=== PATIENT | male | born 1960 | race Caucasian/White ===

== ENCOUNTER 2018-11-05 00:17 | Outpatient (CLI) | payer OTHER, SELFPAY ==
--- NOTE | 2018-11-05 11:43 | DI.US_ITS ---
SYMPTOMS/DIAGNOSIS: LEFT LOWER QUADRANT/GROIN PAIN, ? DIRECT INGUINAL HERNIA, K46.9 LEFT LOWER QUADRANT ULTRASOUND: A left inguinal mass is demonstrated and could represent a hernia measuring 3.2 x 1.2 x 2.6 cm. Acoustical heterogeneity is identified and there is no change with Valsalva maneuver. The possibility of a groin hematoma could not be excluded in this patient.
== END 2018-11-05 00:37 ==
PROVIDERS: PCP Family Medicine; Visit Provider Physical Therapy Assistant
DX: K46.9 Unspecified abdominal hernia without obstruction or gangrene (principal); R10.32 Left lower quadrant pain; R22.9 Localized swelling, mass and lump, unspecified
CPT/HCPCS: 76857

== ENCOUNTER 2019-01-01 01:56 | Outpatient (CLI) | payer OTHER, SELFPAY ==
[2019-01-01 11:45] LABS: Calculated LDL 160 mg/dL; Cholesterol 233 mg/dL (50-200); HDL Cholesterol 55 mg/dL (40-60); Triglyceride 91 mg/dL (30-150)
[2019-01-02 09:39] LABS: PSA, Screening 0.4 ng/ml (0-3.5)
== END 2019-01-01 02:16 ==
PROVIDERS: PCP Family Medicine; Visit Provider Family Medicine
DX: Z12.5 Encounter for screening for malignant neoplasm of prostate (principal); E78.5 Hyperlipidemia, unspecified
CPT/HCPCS: 36415; 80061; 83721; 84153

== ENCOUNTER 2020-03-01 03:07 | Outpatient (CLI) | payer OTHER, SELFPAY ==
[2020-03-01 16:40] LABS: PHENYTOIN (DILANTIN) 11.6 ug/mL (10.0-20.0)
[2020-03-01 16:52] LABS: Calculated LDL 148 mg/dL (<100); Cholesterol 228 mg/dL (<200); HDL Cholesterol 49 mg/dL (40-60); Triglyceride 157 mg/dL (<150)
== END 2020-03-01 03:27 ==
PROVIDERS: PCP Family Medicine; Visit Provider Family Medicine
DX: E78.5 Hyperlipidemia, unspecified (principal); G40.909 Epilepsy, unspecified, not intractable, without status epilepticus; Z51.81 Encounter for therapeutic drug level monitoring
CPT/HCPCS: 36415; 80061; 80185

== ENCOUNTER 2020-05-12 10:21 | Emergency (ER) | payer OTHER, SELFPAY ==
[2020-05-12 10:25] VITALS: BP 157/97; PULSE 83; TEMP 36.3; O2SAT 98
--- NOTE | 2020-05-12 10:33 | W.ED.GENAD ---
Discharge Plan Disposition Patient Disposition: HOME Condition: Stable Discharge Details Clinical Impression: Laceration of left index finger Primary Care Provider: Jose E Jennings ED Provider: Karma Wilson Home Meds and New Rx's Prescriptions: Continued multivitamin capsule 1 cap PO DAILY RF: 0 phenytoin sodium extended [Dilantin Extended] 100 mg capsule 400 mg PO DAILY Qty: 360 RF: 3 atorvastatin 80 mg tablet 80 mg PO DAILY Qty: 90 RF: 3 metoprolol succinate 25 mg tablet extended release 24 hr 25 mg PO DAILY Qty: 90 RF: 3 Discharge Instructions Instructions: Finger Laceration (ED) Additional Instructions: Please have sutures removed in 7 to 10 days. Leave alone for the first 12 to 24 hours. No soaking, keep clean and dry. After 24 hours you may wash under running soap and water. Please take Tylenol or Ibuprofen with food every 4-6 hours as needed for pain and swelling. Follow up with primary care provider in 3-5 days. Return to ED sooner if any worsening or concerns. Increase oral fluids. Stand Alone Forms: Work Release Referrals: Jose E Jennings. [Primary Care Provider] - Medical Decision Making 59-year-old male sustained a laceration to the distal tip of the volar surface of his left index finger on a table saw just prior to arrival. Last tetanus shot was 2015. Range of motion intact. Imaging was performed to rule out foreign body and fracture. EXAM: XR FINGER LT INDEX CLINICAL HISTORY: Laceration, r/o FB or fracture TECHNIQUE: COMPARISON: No exams were available for comparison FINDINGS: Three views were obtained. The patient reportedly had soft tissue injury of the volar aspect of the distal portion of the index finger. No abnormality of the bone subjacent to the reported injury. There are severe degenerative changes at the DIP joint with prominent marginal osteophytes, with some fragmentation dorsal osteophyte of the base of the distal phalanx. The these do not appear to be acute changes. Slight DJD noted at the PIP joint. IMPRESSION: No evidence of acute fracture. No foreign body. Digital block performed patient tolerated well anesthesia was achieved. Wound was cleaned and irrigated extensively by tech staff, laceration repaired with 4 simple interrupted sutures with four-point 0 Ethilon. Wound was poorly approximated, very jagged. Instructed on home care, verbalized understanding. Discussed strict return instructions and to have sutures removed in 7 to 10 days. HPI General Mode of arrival: ambulatory. Date/Time Provider Initiated Documentation: 05/12/20 10:28. Limitations to Documentation: no limitations. Information obtained by: patient. HPI Narrative: 59-year-old male presents to the ER with left index finger laceration. This occurred just prior to arrival while at work working on a table saw states that he got too close to the blade with his finger. He has full range of motion, distal sensation is intact. There is approximate 1.5 cm partial-thickness laceration noted to the distal tip, palmar side. Bleeding is controlled at this time. Last tetanus shot was 2015. Related Data Home Medications Medication Instructions Recorded Confirmed multivitamin 1 cap PO DAILY 10/25/18 05/12/20 metoprolol succinate 25 mg 25 mg PO DAILY #90 tab 12/09/19 05/12/20 tablet,extended release 24 hr Dilantin Extended 100 mg capsule 400 mg PO DAILY #360 cap NS 02/25/20 05/12/20 atorvastatin 80 mg tablet 80 mg PO DAILY #90 tab 02/25/20 05/12/20 Previous Rx's Medication Instructions Recorded metoprolol succinate 25 mg 25 mg PO DAILY #90 tab 12/09/19 tablet,extended release 24 hr Dilantin Extended 100 mg capsule 400 mg PO DAILY #360 cap NS 02/25/20 atorvastatin 80 mg tablet 80 mg PO DAILY #90 tab 02/25/20 Allergies Allergy/AdvReac Type Severity Reaction Status Date / Time niacin Allergy Intermediate SKIN RASH Verified 02/25/20 14:10 General Stated Complaint: Laceration ANGUS: 3 Review of Systems Narrative: Constitutional: Negative for weight loss, alert and oriented, well groomed, normal body habitus, appears comfortable. Extremities: Has a laceration noted to the left index finger distal tip. [facility] Surgical History Colonoscopy - MAC Family History Mother , 84 Essential hypertension Hyperlipidemia Diabetes Father , 69 Essential hypertension Hyperlipidemia Alcohol abuse Sister Essential hypertension Hyperlipidemia FH: ovarian cancer Lung cancer Brother Essential hypertension Hyperlipidemia Maternal Grandfather Heart disease Paternal Grandfather Essential hypertension Heart disease Maternal Grandmother Essential hypertension Heart disease Hyperlipidemia Paternal Grandmother Heart disease Social History Smoking/Tobacco Use Status: Never Second Hand Exposure: Yes Smoking risk assessment performed?: Yes Alcohol Intake: current Alcohol Intake frequency: holidays/special occasions only Alcohol type: beer and wine Drug use: Never Substance use type: does not use Household members: spouse Housing: house Communication Needs: Corrective Lenses Do you need help understanding health information?: Rarely Pets and animals: Yes Pets and animals: cat(s) Sexually active: Yes Do you think of yourself as: straight/heterosexual Current gender identity: male What is your relationship status?: How often do you talk on the phone with friends or family?: twice per week How often do you get together with friends or relatives?: once per week Do you belong to any clubs or organized social groups?: yes Panel score (0-1 are the most socially isolated patients): 3 What type of physical activity do you participate in: other Details: operating saws and stretching Duration: > 90 minutes/day Frequency: 5-6 times per week Swati/Bahai: [employer] Special swati needs: No Seatbelt use: always Helmet use: Yes Helmet use: always 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 Do you feel safe at home: Yes Do you feel safe in your relationship?: Yes Exam Extrem Left upper extremity: hand (1.5 jagged laceration of the distal tip.) Details: normal capillary refill and laceration 2nd digit palmar aspect distal Course Vital Signs Vital signs: Vital Signs Temperature 36.3 C L 05/12/20 10:25 Pulse 83 05/12/20 10:25 Blood Pressure 157/97 H 05/12/20 10:25 Pulse Oximetry 98 05/12/20 10:25 Temperature 36.3 C L 05/12/20 10:25 Temperature Source Temporal Artery Scan 05/12/20 10:25 Pulse 83 05/12/20 10:25 Respiratory Effort Non-Labored 05/12/20 10:27 Blood Pressure 157/97 H 05/12/20 10:25 Blood Pressure Position Sitting 05/12/20 10:25 Pulse Oximetry 98 05/12/20 10:25 Oxygen Delivery Method Room Air 05/12/20 10:25 Oxygen Flow Rate 0 05/12/20 10:25 Pain Level 1 05/12/20 10:25 Procedures Laceration Laceration 1: Site: hand (Left index) Side (If applicable): left Size (cm): 0.5 Description: irregular Depth: simple, single layer Pre-repair: wound explored, irrigated extensively and wound margins revised Skin layer closed with: nylon Size (cm): 4-0 Number of sutures: 4 Technique: simple, interrupted Nerve Block Nerve Block 1: Time out performed: No Local Anesthetic: Lidocaine 1% Amount of anesthesia used (mL): 4 Side: left Nerve Blocks: digital (ring block) Procedure Successful: Yes Patient Tolerated Procedure: well and no complications Complications: none
--- NOTE | 2020-05-12 10:40 | DI.RAD_ITS ---
EXAM: XR FINGER LT INDEX CLINICAL HISTORY: Laceration, r/o FB or fracture TECHNIQUE: COMPARISON: No exams were available for comparison FINDINGS: Three views were obtained. The patient reportedly had soft tissue injury of the volar aspect of the distal portion of the index finger. No abnormality of the bone subjacent to the reported injury. There are severe degenerative changes a t the DIP joint with prominent marginal osteophytes, with some fragmentation dorsal osteophyte of the base of the distal phalanx. The these do not appear to be acute changes. Slight DJD noted at the PIP joint. IMPRESSION: No evidence of acute fracture. No foreign body. RADIATION DOSE DELIVERED: Total DLP
== END 2020-05-12 11:32 | disposition home or self-care (01) ==
PROVIDERS: Emergency Provider Registered Nurse Emergency; PCP Family Medicine
DX: S61.211A Laceration without foreign body of left index finger without damage to nail, initial encounter (principal); W31.2XXA Contact with powered woodworking and forming machines, initial encounter; Y99.0 Civilian activity done for income or pay
CPT/HCPCS: 12001; 73140

== ENCOUNTER 2020-08-06 08:27 | Emergency (ER) | payer OTHER, SELFPAY ==
--- NOTE | 2020-08-06 08:29 | W.ED.GENAD ---
Discharge Plan Disposition Patient Disposition: HOME Condition: Good Discharge Details Clinical Impression: Abrasion, Contusion Primary Care Provider: Jose E Jennings ED Provider: Rochelle Asencio Home Meds and New Rx's Prescriptions: Continued multivitamin capsule 1 cap PO DAILY RF: 0 phenytoin sodium extended [Dilantin Extended] 100 mg capsule 400 mg PO DAILY Qty: 360 RF: 3 atorvastatin 80 mg tablet 80 mg PO DAILY Qty: 90 RF: 3 metoprolol succinate 25 mg tablet extended release 24 hr 25 mg PO DAILY Qty: 90 RF: 3 Discharge Instructions Instructions: Contusion in Adults (ED), Abrasion (ED) Additional Instructions: Your imaging is reassuring here today. Please encourage gentle stretching. Please avoid heavy lifting or activities because pain. Tylenol and/or ibuprofen as needed for discomfort. Monitor wounds for signs of infection including redness, warmth, drainage, increased pain or fever/chills. If you develop these or other new/worsening symptoms please seek care urgently once again. Otherwise, please follow-up with your primary care in 2-week for reevaluation. Stand Alone Forms: Work Release Referrals: Jose E Jennings. [Primary Care Provider] - Discharge Data Discharge Date/Time-TO BE ENTERED AT DEPARTURE: 08/06/20 10:45 Medical Decision Making Patient is a pleasant 59-year-old gentleman presenting today with chief complaint of back pain. He reports that yesterday he was moving quickly backwards when he tripped over a pallet at work and fell striking the left flank again a cast iron hopper. Reports that since that time he has been having moderate pain to the left flank. Denies any hematuria. No fevers or chills. He did not strike his head, no loss of consciousness. Denies other injury at the time of the incident. He denies any numbness or tingling. No lower extremity weakness or difficulty with ambulation. No change in bowel or bladder habits. On exam, patient appears nontoxic. He has ecchymosis and abrasion to the left flank with CVA tenderness. Lungs are clear. Abdominal exam is benign. I am concerned for potential fracture rib versus kidney injury and some imaging would be appropriate. I did discuss this plan with the patient is in agreement. CHEST: The heart size is normal. Coronary artery calcifications are seen. The ascending aorta measures 3.6 cm. There is no evidence of dissection. There is no pleural or pericardial effusion. There is no evidence of pneumothorax or pulmonary contusion. No rib fractures are seen. There are degenerative changes in the shoulders. No thoracic spine or sternal fracture is seen. Degenerative changes are seen in the spine. ABDOMEN: Liver: Normal density. No measurable mass. Gallbladder and biliary tract: No radiodense calculus or dilation. Pancreas: Normal density, no abnormal calcifications or inflammatory process. Spleen: Normal. Kidneys: Normal size, contour and axis. No radiodense stones or obstructive uropathy. No masses seen. Tiny renal cysts. Adrenal glands: No masses seen. Aorta: Abdominal portion non-dilated. Mild atherosclerotic changes. Lymph nodes: Within normal limits. PELVIS: Bladder: Symmetric distention, no gross wall thickening. Bowel: No obstruction or bowel wall thickening. Normal appendix. Moderate quantity of stool. Peritoneal cavity: No ascites, collection or mesenteric inflammatory response. Bones: Degenerative changes in the spine and hips. No evidence of fracture. Reproductive organs: Within normal limits. IMPRESSION: No acute abnormality in the chest, abdomen, or pelvis. Discussed these findings with the patient. Encourage rest, ice, Tylenol/ibuprofen to help with discomfort. Return precautions were discussed. Care of the abrasions were discussed. We discussed symptoms associated with infection. We discussed activities that he should avoid. I did encourage gentle stretching to help prevent muscle spasm. All the questions and concerns were addressed and he is in agreement with plan. HPI General Mode of arrival: ambulatory. Date/Time Provider Initiated Documentation: 08/06/20 08:29. Limitations to Documentation: no limitations. Information obtained by: patient and RN notes reviewed. History of Present Illness 59 year old M presents to the emergency department with the chief complaint of left flank pain, described as moderate, with intensity rated at 7. Quality is described as aching, and is localized to the back. Patient reports no radiation. Patient started experiencing this day(s) (fell yesterday) and it has been constant. Immobilization improves symptom(s), Movement worsens symptoms . Patient notes no other symptoms.. Patient did receive the following treatments prior to arrival, none Related Data Home Medications Medication Instructions Recorded Confirmed multivitamin 1 cap PO DAILY 10/25/18 05/21/20 metoprolol succinate 25 mg 25 mg PO DAILY #90 tab 12/09/19 05/21/20 tablet,extended release 24 hr Dilantin Extended 100 mg capsule 400 mg PO DAILY #360 cap NS 02/25/20 05/21/20 atorvastatin 80 mg tablet 80 mg PO DAILY #90 tab 02/25/20 05/21/20 Previous Rx's Medication Instructions Recorded metoprolol succinate 25 mg 25 mg PO DAILY #90 tab 12/09/19 tablet,extended release 24 hr Dilantin Extended 100 mg capsule 400 mg PO DAILY #360 cap NS 02/25/20 atorvastatin 80 mg tablet 80 mg PO DAILY #90 tab 02/25/20 Allergies Allergy/AdvReac Type Severity Reaction Status Date / Time niacin Allergy Intermediate SKIN RASH Verified 08/06/20 08:37 General ANGUS: 3 Review of Systems Constitutional Constitutional: Reports as per HPI, Denies chills, Denies fatigue, Denies fever(s), Denies frequent falls and Denies headache(s) Eyes Eyes: Denies change in vision ENT Ears, Nose, Mouth, and Throat: Denies headache(s) Cardiovascular Cardiovascular: Denies chest pain, Denies dyspnea and Denies dyspnea on exertion Respiratory Respiratory: Denies cough, Denies dyspnea and Denies dyspnea on exertion Gastrointestinal Gastrointestinal: Denies abdominal pain, Denies change in bowel habits and Denies fecal incontinence Genitourinary Genitourinary: Reports as per HPI, Denies urinary hesitancy and Denies urinary incontinence Musculoskeletal Musculoskeletal: Reports as per HPI, Reports back pain, Denies muscle weakness, Denies numbness, Denies radiating pain into limb, Reports stiffness and Denies tingling Integumentary/Breasts Skin/Breast: Reports as per HPI, Reports skin pain, Reports skin swelling and Reports wounds (abrasion and ecchymosis left flank) Neurologic Neurologic: Reports as per HPI, Denies frequent falls, Denies headache(s), Denies localized weakness, Denies numbness, Denies radicular pain, Denies sensory deficit, Denies tingling and Denies paresthesias Endocrine Endocrine: Denies fatigue PFSH Surgical History Colonoscopy - MAC Family History Mother , 84 Essential hypertension Hyperlipidemia Diabetes Father , 69 Essential hypertension Hyperlipidemia Alcohol abuse Sister Essential hypertension Hyperlipidemia FH: ovarian cancer Lung cancer Brother Essential hypertension Hyperlipidemia Maternal Grandfather Heart disease Paternal Grandfather Essential hypertension Heart disease Maternal Grandmother Essential hypertension Heart disease Hyperlipidemia Paternal Grandmother Heart disease Social History Smoking/Tobacco Use Status: Never Second Hand Exposure: Yes Smoking risk assessment performed?: Yes Alcohol Intake: former Drug use: Never Substance use type: does not use Household members: spouse Housing: house Communication Needs: Corrective Lenses Do you need help understanding health information?: Rarely Pets and animals: Yes Pets and animals: cat(s) Sexually active: Yes Do you think of yourself as: straight/heterosexual Current gender identity: male What is your relationship status?: How often do you talk on the phone with friends or family?: twice per week How often do you get together with friends or relatives?: once per week Do you belong to any clubs or organized social groups?: yes Panel score (0-1 are the most socially isolated patients): 3 What type of physical activity do you participate in: other Details: operating saws and stretching Duration: > 90 minutes/day Frequency: 5-6 times per week Swati/Zoroastrianism: Holiness Special swati needs: No Seatbelt use: always Helmet use: Yes Helmet use: always 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 Do you feel safe at home: Yes Do you feel safe in your relationship?: Yes Exam Const General: cooperative, healthy appearing, comfortable, no acute distress, well developed and well groomed Nutritional Appearance: average body habitus and well nourished Orientation: alert and awake Eyes General: appearance normal, both eyes and all related structures Neck Neck: normal visual inspection, full ROM, no lymphadenopathy and no meningeal signs Resp Effort & Inspection: normal respiratory effort and able to speak in complete sentences Auscultation: clear to auscultation bilaterally, no rales, no rhonchi and no wheezes Cardio Rate: regular rate Rhythm: regular rhythm Heart Sounds: S1 normal and S2 normal GI Inspection: normal to inspection Palpation: soft, no hepatosplenomegaly, no guarding, no hernias, not rigid and nontender Percussion: normal to percussion Back/Spine/Pelvis Back: CVA tenderness (left) Cervical Spine: normal cervical lordosis, cervical ROM normal, No cervical spinal tenderness and No step off deformity Thoracic/Lumbar Spine: thoracic and lumbar spine normal to inspection, No pain with thoraco-lumbar ROM, No thoraco-lumbar spasm, No thoracic spinal tenderness and No lumbar spinal tenderness Pelvis: no pain with anterior-posterior compression and no pain with lateral compression Back/spine/pelvis image: 1. area of ecchymosis and abrasion. No deep wounds, no palpable deformity Skin General skin exam: ecchymosis Trauma: abrasion Neuro General: patient alert and patient awake Cognition: normal cognition Speech: speech normal Gait: normal gait Motor: muscle tone normal throughout, strength 5/5 throughout, no movement abnormalities noted and no fasciculations Sensory Exam: no sensory deficits noted (no saddle paresthesias) DTR's: Rt Patellar: 2+, Lt Patellar: 2+, Rt Ankle: 2+ and Lt Ankle: 2+ Extrem General: normal to inspection, full ROM, capillary refill normal, no joint enlargement, no pedal edema, no calf tenderness and normal gait Psych Appearance: grossly normal and well kempt Mental Status: mental status grossly normal Speech and Movement: speech and movement normal
[2020-08-06 08:34] VITALS: BP 156/98; PULSE 82; RESP 18; TEMP 36.3; O2SAT 100
[2020-08-06 09:06] LABS: Abs Immature Grans 0.02 10^3/uL (0.0-0.06); Absolute Basophil Count 0.08 10^3/uL (0.0-0.2); Absolute Eosinophil Count 0.27 10^3/uL (0.0-0.7); Absolute Lymphocyte Count 2.74 10^3/uL (1.2-3.4); Absolute Neutrophil Count 5.45 10^3/uL (1.2-6.7); Basophils % 0.8; Eosinophils % 2.8; HCT 45.7 % (40.0-50.0); HGB 15.3 g/dL (13.5-17.5); Immature Grans % 0.2; Lymphocytes % 28.4; MCHC 33.5 % (32.0-36.0); MCV 95.6 fL (80-95); MPV 9.9 fL (8.0-11.0); Monocytes % 11.4; Neutrophils % 56.4; Nucleated RBC 0 %; Platelet Count 375 10^3/uL (130-400); RBC 4.78 10^6/uL (4.36-5.78); RDW 12.3 % (11.8-14.1); RDW-SD 43.9 fL; WBC 9.66 10^3/uL (4.4-10.8)
[2020-08-06] MEDS: Normal Saline 1,000 ML 1000 ML IV (09:10)
[2020-08-06] MEDS: Normal Saline Flush 10 ML SYR IVP (09:15)
[2020-08-06 09:30] LABS: ALT 34 U/L (16-63); AST 20 U/L (15-37); Albumin 3.6 g/dL (3.4-5.0); Alkaline Phosphatase 109 U/L (46-116); Anion Gap 8.8 mmol/L (3-11); BUN 10 mg/dL (7-18); Bilirubin, Total 0.5 mg/dL (0.2-1.0); CO2 28.2 mmol/L (21.0-32.0); CREATININE 0.6 mg/dL (0.70-1.30); Calcium 9.2 mg/dL (8.5-10.1); Chloride 101 mmol/L (98-107); Glucose 130 mg/dL (74-106); Potassium 3.9 mmol/L (3.5-5.1); Sodium 138 mmol/L (136-145); Total Protein 7.5 g/dL (6.4-8.2)
--- NOTE | 2020-08-06 09:51 | DI.CT_ITS ---
EXAM: CT CHEST/ABD/PEL W CLINICAL HISTORY: fall, left lateral pain, CVA tenderness. TECHNIQUE: Imaging Protocol: Axial computed tomography images with coronal and sagittal reformatted images were created and reviewed CONTRAST MATERIAL: Intravenous: Omnipaque 350 Contrast volume:100 cc Oral: / no COMPARISON: No exams were available for comparison FINDINGS: CHEST: The heart size is normal. Coronary artery calcifications are seen. The ascending aorta measures 3.6 cm. There is no evidence of dissection. There is no pleural or pericardial effusion. There is no evidence of pneumothorax or pulmonary contusion. No rib fractures are seen. There are degenerative changes in the shoulders. No thoracic spine or sternal fracture is seen. Degenerative changes are s een in the spine. ABDOMEN: Liver: Normal density. No measurable mass. Gallbladder and biliary tract: No radiodense calculus or dilation. Pancreas: Normal density, no abnormal calcifications or inflammatory process. Spleen: Normal. Kidneys: Normal size, contour and axis. No radiodense stones or obstructive uropathy. No masses seen. Tiny renal cysts. Adrenal glands: No masses seen. Aorta: Abdominal portion non-dilated. Mild atherosclerotic changes. Lymph nodes: Within normal limits. PELVIS: Bladder: Symmetric distention, no gross wall thickening. Bowel: No obstruction or bowel wall thickening. Normal appendix. Moderate quantity of stool. Peritoneal cavity: No ascites, collection or mesenteric inflammatory response. Bones: Degenerative changes in the spine and hips. No evidence of fracture. Reproductive organs: Within normal limits. IMPRESSION: No acute abnormality in the chest, abdomen, or pelvis. RADIATION DOSE DELIVERED: 1,139.86mGy.cm Total DLP DATA REPOSITORY: All CT scans at this facility are submitted to the National Radiology Data Registry (NRDR) Dose Index Registry (DIR) with the [employer] (ACR). RADIATION OPTIMIZATION: All CT scans at this facility use at least one of these dose optimization te chniques: automated exposure control; mA and/or kV adjustment per patient size (includes targeted exa ms where dose is matched to clinical indication); or iterative reconstruction.
[2020-08-06] MEDS: Omnipaque 350 MG/ML 100 ML BTL IJ (09:53)
[2020-08-06] MEDS: Normal Saline - Diluent 50 ML VIAL IV (09:55)
[2020-08-06 10:42] VITALS: BP 126/91; PULSE 80; RESP 16; TEMP 36.6; O2SAT 100
[2020-08-06 10:45] VITALS: BP 126/91; PULSE 80; RESP 16; TEMP 36.6; O2SAT 100
== END 2020-08-06 10:45 | disposition home or self-care (01) ==
PROVIDERS: Emergency Provider Physician Assistant; PCP Family Medicine
DX: S30.1XXA Contusion of abdominal wall, initial encounter (principal); S30.811A Abrasion of abdominal wall, initial encounter; W01.198A Fall on same level from slipping, tripping and stumbling with subsequent striking against other object, initial encounter; Y93.89 Activity, other specified; Y92.89 Other specified places as the place of occurrence of the external cause; Y99.0 Civilian activity done for income or pay
CPT/HCPCS: 74177; 80053; 96360; 99285; 71260; 85025; 99283; J3490

== ENCOUNTER 2020-09-25 10:25 | Emergency (ER) | payer OTHER, SELFPAY ==
[2020-09-25] VITALS (28 sets, daily range): BP systolic 115–150; BP diastolic 75–87; PULSE 75–91; RESP 10–24; TEMP 36.3; O2SAT 90–100
--- NOTE | 2020-09-25 10:15 | DI.RAD_ITS ---
EXAM: XR PORTABLE CHEST AP CLINICAL HISTORY: post seizure TECHNIQUE: 2D digital imaging was performed. COMPARISON: No exams were available for comparison FINDINGS: MEDIASTINUM: Normal. HEART: Normal. PULMONARY VASCULATURE: Normal. LUNGS: Clear. PLEURAL SPACE: No pleural effusion or pneumothorax. BONE:Within normal limits for the patient's age. There is deformity of the left clavicle which may b e chronic. Please correlate with the patient's past medical history. OTHER FINDINGS:Normal. IMPRESSION: No acute pulmonary findings. DATA REPOSITORY: RADIATION DOSE DELIVERED:
--- NOTE | 2020-09-25 10:15 | RT.EKG_ITS ---
APPROVED REPORT Exam: Resting ECG Patient Location: E HR:77 bpm ECG Measurements Heart Rate 77 AXIS [place] 182 P 132 QRSd 95 QRS 92 QT 397 T 136 QTc 450 Conclusion Right and left arm electrode reversal, interpretation assumes no reversal Sinus rhythm...normal P axis, V-rate 60- 99 Probable lateral infarct, age indeterminate...Q >35mS, T neg, V5-V6 I aVL Physician: no stemi
--- NOTE | 2020-09-25 10:31 | DI.CT_ITS ---
EXAM: CT HEAD WO CLINICAL HISTORY: seizure, altered. TECHNIQUE: Imaging Protocol: Axial computed tomography images with coronal and sagittal reformatted images were created and reviewed COMPARISON: No exams were available for comparison FINDINGS: Ventricles and Extra axial spaces: Normal in size and morphology for the patient's age. Hemorrhage: None. Cerebral parenchyma: Normal. No acute territorial infarct. Midline shift: None. Brainstem/Cerebellum: Normal. Calvarium: Normal. Visualized Paranasal sinuses/Mastoids: There is a small mucous retention cyst or polyp in the left ma xillary sinus. There is mild mucosal thickening in the ethmoid air cells bilaterally. The remaining visualized paranasal sinuses and mastoid air cells are clear. Soft Tissues: Unremarkable. IMPRESSION: No acute intracranial process. RADIATION DOSE DELIVERED: 762.23mGy.cm Total DLP DATA REPOSITORY: All CT scans at this facility are submitted to the National Radiology Data Registry (NRDR) Dose Index Registry (DIR) with the [employer] (ACR). RADIATION OPTIMIZATION: All CT scans at this facility use at least one of these dose optimization te chniques: automated exposure control; mA and/or kV adjustment per patient size (includes targeted exa ms where dose is matched to clinical indication); or iterative reconstruction.
[2020-09-25 10:33] LABS: BE (Venous) -2 mmol/L (-2-3); HCO3 (Venous) 23 mmol/L (23-28); O2 Sat (Venous) 98 %; TCO2 (Venous) 20 mmol/L (24-29); pCO2 (Venous) 37 mmHg (41-51); pH (Venous) 7.39 (7.31-7.41); pO2 (Venous) 99 mmHg
[2020-09-25 10:35] LABS: Abs Immature Grans 0.13 10^3/uL (0.0-0.06); Absolute Basophil Count 0.09 10^3/uL (0.0-0.2); Absolute Lymphocyte Count 2.65 10^3/uL (1.2-3.4); Absolute Neutrophil Count 7.13 10^3/uL (1.2-6.7); Basophils % 0.8; Eosinophils % 0.9; HCT 43.1 % (40.0-50.0); HGB 14.6 g/dL (13.5-17.5); Immature Grans % 1.2; Lymphocytes % 24.5; MCH 32.2 pg (27.0-33.0); MCHC 33.9 % (32.0-36.0); MCV 94.9 fL (80-95); MPV 10.2 fL (8.0-11.0); Monocytes % 6.5; Neutrophils % 66.1; Nucleated RBC 0 %; Platelet Count 368 10^3/uL (130-400); RBC 4.54 10^6/uL (4.36-5.78); RDW 12.3 % (11.8-14.1); RDW-SD 43.3 fL
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
[2020-09-25 10:51] LABS: PTT Activated 21.2 sec (21.0-27.5); Prothrombin Time 10.3 sec (9.3-11.0)
[2020-09-25 10:52] LABS: Bilirubin Negative (Negative); Blood Moderate (Negative); Clarity Clear (Clear); Glucose Negative (Negative); Ketones Negative (Negative); Leukocyte Esterase Negative (Negative); Nitrite Negative (Negative); Specific Gravity >= 1.030 (1.005-1.025); Urobilinogen 0.2 EU/dL (Up TO 0.2)
[2020-09-25 10:56] LABS: ALT 37 U/L (16-63); AST 22 U/L (15-37); Albumin 3.5 g/dL (3.4-5.0); Alkaline Phosphatase 94 U/L (46-116); BUN 18 mg/dL (7-18); Bilirubin, Total 0.3 mg/dL (0.2-1.0); CREATININE 0.9 mg/dL (0.70-1.30); Calcium 8.9 mg/dL (8.5-10.1); Chloride 101 mmol/L (98-107); ETHANOL BLOOD 3.6 mg/dL (<3); Glucose 204 mg/dL (74-106); Potassium 3.4 mmol/L (3.5-5.1); Sodium 138 mmol/L (136-145); TSH (W/Ref FT4) 1.52 uIU/mL (0.36-3.74)
[2020-09-25 10:57] LABS: PHENYTOIN (DILANTIN) 1.1 ug/mL (10.0-20.0)
[2020-09-25 10:58] LABS: Troponin I < 0.05 ng/mL (<0.06)
--- NOTE | 2020-09-25 10:58 | DI.VRAD_ITS ---
PROCEDURE INFORMATION: Exam: CT Head Without Contrast Exam date and time: 09/25/2020 10:30 AM Age: 59 years old Clinical indication: Altered mental status/memory loss; Patient HX: Seizure, AMS TECHNIQUE: Imaging protocol: Computed tomography of the head without contrast. Radiation optimization: All CT scans at this facility use at least one of these dose optimization techniques: automated exposure control; mA and/or kV adjustment per patient size (includes targeted exams where dose is matched to clinical indication); or iterative reconstruction. COMPARISON: No relevant prior studies available. FINDINGS: Brain: Normal. No hemorrhage. Unremarkable white matter. No mass effect. Cerebral ventricles: No ventriculomegaly. Bones/joints: Unremarkable. No acute fracture. Paranasal sinuses: Small retention cyst anterior left maxillary sinus. Mastoid air cells: Visualized mastoid air cells are well aerated. Soft tissues: Unremarkable. IMPRESSION: No acute intracranial findings. Dictated and Authenticated by: Bhaskar Mclean MD. Ordering:BURTON Obregon MD
--- NOTE | 2020-09-25 10:58 | DI.VRAD_ITS ---
PROCEDURE INFORMATION: Exam: XR Chest Exam date and time: 09/25/2020 10:37 AM Age: 59 years old Clinical indication: Pain; Chest pressure TECHNIQUE: Imaging protocol: XR of the chest. Views: 1 view. COMPARISON: CT CHEST/ABD/PEL W 08/06/2020 9:48 AM FINDINGS: Lungs: Unremarkable. No consolidation. Pleural spaces: Unremarkable. No pleural effusion. No pneumothorax. Heart/Mediastinum: Unremarkable. No cardiomegaly. Bones/joints: Unremarkable. IMPRESSION: No acute findings. Dictated and Authenticated by: Bhaskar Mclean MD. Ordering:BURTON Obregon MD
[2020-09-25 11:06] LABS: Bacteria Few HPF (Negative); Crystals Few Calcium Oxalate HPF (Negative); Epithelial Cells Rare HPF (Negative); Mucus Moderate (Negative); RBC 20-50 HPF (0-2); WBC 0-2 HPF (0-5)
[2020-09-25 11:07] LABS: C & S Indicated? No
[2020-09-25 11:13] LABS: *AMPHETAMINES SCREEN URINE Negative (Negative); *BARBITURATES SCREEN URINE Negative (Negative); *BENZODIAZEPINES SCREEN URINE Negative (Negative); Cannabinoids THC Positive (Negative); Cocaine Screen,Urine Negative (Negative); METHADONE URINE SCREEN Negative (Negative); OPIATES URINE SCREEN Negative (Negative)
[2020-09-25 11:16] LABS: Tricyclic Antidepressants Negative (Negative)
[2020-09-25 11:18] LABS: Ammonia 28 umol/L (11-32)
[2020-09-25] MEDS: Normal Saline 1,000 ML 1000 ML IV (11:27)
== END 2020-09-25 13:05 | disposition home or self-care (01) ==
LOC: ER 12:29
PROVIDERS: Emergency Provider Student in an Organized Health Care Education/Training Program; PCP Family Medicine
DX: G40.409 Other generalized epilepsy and epileptic syndromes, not intractable, without status epilepticus (principal); R78.89 Finding of other specified substances, not normally found in blood; R41.82 Altered mental status, unspecified
CPT/HCPCS: 80053; 80307; 82805; 87040; 93005; 96361; 96365; 99285; 70450; 71045; 80185; 80320; 81003; 81015; 82140; 84443; 84484; 85025; 85610; 85730; 93010; 99283; J1165

== ENCOUNTER 2022-03-03 01:19 | Outpatient (CLI) | payer BC, SELFPAY ==
[2022-03-03 12:39] LABS: Calculated LDL 128 mg/dL (<100); Cholesterol 205 mg/dL (<200); HDL Cholesterol 64 mg/dL (40-60); Triglyceride 67 mg/dL (<150)
[2022-03-03 15:30] LABS: PHENYTOIN (DILANTIN) 15.4 ug/mL (10.0-20.0)
== END 2022-03-03 01:20 | disposition home or self-care (01) ==
LOC: LOS 01:20
PROVIDERS: PCP Family Medicine; Visit Provider Family Medicine
DX: G40.909 Epilepsy, unspecified, not intractable, without status epilepticus (principal); E78.5 Hyperlipidemia, unspecified
CPT/HCPCS: 36415; 80061; 80185

== ENCOUNTER 2023-03-06 03:37 | Outpatient (CLI) | payer BC, SELFPAY ==
[2023-03-06 12:52] LABS: Calculated LDL 154 mg/dL (<100); Cholesterol 230 mg/dL (<200); HDL Cholesterol 55 mg/dL (40-60); Triglyceride 108 mg/dL (<150)
[2023-03-06 13:10] LABS: Hemoglobin A1C 5.7 % (<5.7)
[2023-03-06 13:13] LABS: PHENYTOIN (DILANTIN) 21.5 ug/mL (10.0-20.0)
== END 2023-03-06 03:38 | disposition home or self-care (01) ==
LOC: LOS 03:37
PROVIDERS: PCP Family Medicine; Visit Provider Family Medicine
DX: I10 Essential (primary) hypertension (principal); E78.5 Hyperlipidemia, unspecified; E11.69 Type 2 diabetes mellitus with other specified complication; G40.909 Epilepsy, unspecified, not intractable, without status epilepticus; Z51.81 Encounter for therapeutic drug level monitoring; Z79.899 Other long term (current) drug therapy
CPT/HCPCS: 36415; 80061; 80185; 83036; 84132

== ENCOUNTER 2023-03-11 10:03 | Emergency (ER) | payer BC, SELFPAY ==
[2023-03-11 10:05] VITALS: BP 191/100; PULSE 79; RESP 20; TEMP 36.8; O2SAT 99
[2023-03-11] MEDS: Cellulose,Oxidized 2X3 PKT 1 EACH MC ×2 (10:10→10:29)
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
== END 2023-03-11 10:57 | disposition home or self-care (01) ==
PROVIDERS: Emergency Provider Registered Nurse Emergency; PCP Family Medicine
DX: S61.215A Laceration without foreign body of left ring finger without damage to nail, initial encounter (principal); W27.2XXA Contact with scissors, initial encounter
CPT/HCPCS: 99282

== ENCOUNTER 2023-05-02 03:02 | Outpatient (CLI) | payer BC, SELFPAY ==
[2023-05-02 08:18] LABS: PHENYTOIN (DILANTIN) 6.8 ug/mL (10.0-20.0)
== END 2023-05-02 03:03 | disposition home or self-care (01) ==
LOC: LBO 03:02
PROVIDERS: PCP Family Medicine; Visit Provider Family Medicine
DX: G40.909 Epilepsy, unspecified, not intractable, without status epilepticus (principal); Z79.899 Other long term (current) drug therapy; Z51.81 Encounter for therapeutic drug level monitoring
CPT/HCPCS: 36415; 80185

== ENCOUNTER 2023-06-01 02:05 | Outpatient (CLI) | payer BC, SELFPAY ==
[2023-06-01 08:17] LABS: PHENYTOIN (DILANTIN) 13.1 ug/mL (10.0-20.0)
== END 2023-06-01 02:06 | disposition home or self-care (01) ==
LOC: LBO 02:05
PROVIDERS: PCP Family Medicine; Visit Provider Family Medicine
DX: G40.909 Epilepsy, unspecified, not intractable, without status epilepticus (principal)
CPT/HCPCS: 36415; 80185

== ENCOUNTER 2024-05-14 05:30 | Inpatient (IN) | payer OTHER, SELFPAY ==
[2024-05-14] VITALS (53 sets, daily range): BP systolic 124–168; BP diastolic 69–111; PULSE 66–102; RESP 9–22; TEMP 36.9–37.2; O2SAT 88–100
--- NOTE | 2024-05-14 05:30 | DI.CT_ITS ---
Exam(s) CT BRAIN NECK CTA EXAM: CT BRAIN NECK CTA CLINICAL HISTORY: confused, altered. TECHNIQUE: Imaging Protocol: Axial CT angiography was performed with multi-slice acquisition and mu lti-planar and/or 3D reconstructions. CONTRAST MATERIAL: Intravenous: Omnipaque 350 contrast volume:70 mL COMPARISON: CT CT HEAD WO from 09/25/2020 FINDINGS: The examination is limited due to patient motion artifact. CT Head W/O and W: Ventricles and Extra axial spaces: Normal in size and morphology for the patient's age. Hemorrhage: None. Cerebral parenchyma: No mass effect. No findings to suggest an acute territorial infarct are seen. Th ere are subtle areas of decreased attenuation in the white matter consistent with chronic microvascul ar ischemic disease. Midline shift: None. Brainstem/Cerebellum: Normal. Calvarium: Normal. Visualized Paranasal sinuses/Mastoids: There is mild mucosal thickening in the paranasal sinuses. No air-fluid levels are present. Soft Tissues: Unremarkable. Enhancement: Unremarkable. CTA Neck W: Common Carotid: Right: No dissection, occlusion or significant stenosis. Left: No dissection, occlusion or significant stenosis. External Carotid: Right: No occlusion or significant stenosis. Left: No occlusion or significant stenosis. Internal Carotid: Right: No dissection, occlusion or significant stenosis. Left: No dissection, occlusion or significant stenosis. Vertebral Artery: Right: No dissection, occlusion or significant stenosis. Left: No dissection, occlusion or significant stenosis. Lung Apices: Normal. Bones: Within normal limits for the patient's age. Soft Tissues: Normal. Thyroid gland: Unremarkable. CTA Brain W: Internal Carotid Arteries: No aneurysm, occlusion or significant stenosis. Anterior Cerebral Arteries: Right: No aneurysm, occlusion or significant stenosis. Left: No aneurysm, occlusion or significant stenosis. Middle Cerebral Arteries: Right: No aneurysm, occlusion or significant stenosis. Left: No aneurysm, occlusion or significant stenosis. Posterior Cerebral Arteries: Right: No aneurysm, occlusion or significant stenosis. Left: No aneurysm, occlusion or significant stenosis. Vertebral Arteries: Right: No aneurysm, occlusion or significant stenosis. Left: No aneurysm, occlusion or significant stenosis. Basilar Artery: No aneurysm, occlusion or significant stenosis. IMPRESSION: 1. No large vessel occlusion or significant stenosis on the CT angiography of the head. 2. No acute intracranial process. 3. No occlusion or significant stenosis on the CT angiography of the neck. RADIATION DOSE DELIVERED: 3,101.74mGy.cm Total DLP DATA REPOSITORY: All CT scans at this facility are submitted to the National Radiology Data Registry (NRDR) Dose Index Registry (DIR) with the [employer] (ACR). RADIATION OPTIMIZATION: All CT scans at this facility use at least one of these dose optimization te chniques: automated exposure control; mA and/or kV adjustment per patient size (includes targeted exa ms where dose is matched to clinical indication); or iterative reconstruction.
--- NOTE | 2024-05-14 05:30 | RT.EKG_ITS ---
APPROVED REPORT Exam: Resting ECG Reason for Exam: dizzy Patient Location: E HR:79 bpm ECG Measurements Heart Rate 79 AXIS ND 171 P 60 QRSd 93 QRS 102 QT 380 T 76 QTc 437 Conclusion Sinus rhythm...normal P axis, V-rate 60- 99 Right axis deviation...QRS axis ( 01,200) I have reviewed and interpreted ECG and agree with software generated interpretation.
[2024-05-14 05:50] LABS: BE (Venous) 2 mmol/L (-2-3); HCO3 (Venous) 26 mmol/L (23-28); O2 Sat (Venous) 82 %; TCO2 (Venous) 22 mmol/L (24-29); pCO2 (Venous) 33 mmHg (41-51); pO2 (Venous) 40 mmHg
[2024-05-14 05:55] LABS: Absolute Basophil Count 0.04 10^3/uL (0.0-0.2); Absolute Monocyte Count 1.39 10^3/uL (0.1-0.8); Basophils % 0.2 %; Eosinophils % 0.1 %; HCT 43.9 % (40.0-50.0); HGB 15.1 g/dL (13.5-17.5); Immature Grans % 0.6 %; Lymphocytes % 9.8 %; MCH 32.4 pg (27.0-33.0); MCHC 34.4 % (32.0-36.0); MCV 94 fL (80-95); MPV 10.3 fL (8.0-11.0); Monocytes % 7.7 %; Neutrophils % 81.6 %; Platelet Count 331 10^3/uL (130-400); RBC 4.66 10^6/uL (4.36-5.78); RDW 12.3 % (11.8-14.1); RDW-SD 42.6 fL; WBC 18.11 10^3/uL (4.4-10.8)
[2024-05-14 05:58] LABS: Absolute Eosinophil Count 0.02 10^3/uL (0.0-0.7); Absolute Lymphocyte Count 1.77 10^3/uL (1.2-3.4); Absolute Neutrophil Count 14.78 10^3/uL (1.2-6.7)
[2024-05-14 06:06] LABS: Ammonia < 10 umol/L (11-32)
[2024-05-14 06:07] LABS: INR 1.1 (0.9-1.1); PTT Activated 23.6 sec (23.6-32.8); Prothrombin Time 10.8 sec (9.1-11.1)
[2024-05-14 06:16] LABS: PHENYTOIN (DILANTIN) 5.6 ug/mL (10.0-20.0)
[2024-05-14 06:23] LABS: TSH (W/Ref FT4) 1.39 uIU/mL (0.36-3.74); Troponin I 4 ng/L (<or=76)
--- NOTE | 2024-05-14 06:24 | ED.GENADUL_ITS ---
Discharge Plan Discharge Details Chief Complaint: AMS/LOC Clinical Impression: Acute confusion Primary Care Provider: Jose E Jennings ED Provider: Sabas Herrera Home Meds and New Rx's Prescriptions: No Action losartan 50 mg tablet 50 mg PO DAILY Qty: 30 3RF atorvastatin 80 mg tablet 80 mg PO DAILY Qty: 90 3RF metoprolol succinate 25 mg tablet extended release 24 hr 25 mg PO DAILY Qty: 90 3RF trazodone 50 mg tablet 75 mg PO QHS PRN (Reason: insomnia) Qty: 135 3RF Rx Instructions: Take 75mg every night. venlafaxine 75 mg capsule,extended release 24hr 75 mg PO DAILY Qty: 30 2RF phenytoin sodium extended [Dilantin Extended] 100 mg capsule 300 - 400 mg PO DAILY Qty: 270 3RF Rx Instructions: dose reduction 03/07/23 dose increase 300/400 mg alternating days 05/02/23 venlafaxine 37.5 mg capsule,extended release 24hr 37.5 mg PO DAILY Patient Comments: TAKE ONE CAPSULE BY MOUTH EVERY DAY HPI General Date/Time Provider Initiated Documentation: 05/14/24 05:31 . HPI Narrative: This is a 63-year-old male with a past medical history of seizures on Dilantin, high cholesterol, hypertension, very very distant alcohol use no longer currently drinking, who presents today for evaluation of altered mental status. Patient arrives with family members, patient has very little complaints except stating that he feels dizzy, off, and slightly out of sorts. Family including state that since yesterday early afternoon he has been feeling quite off and very confused. No falls or trauma. No fever or chills. No cough. No chest pain, headache or neck pain. Aside for these components of confusion family denies any other abnormalities. Patient has no other complaints. Related Data Home Medications ?Medication ?Instructions ?Recorded ?Confirmed phenytoin sodium extended 100 mg 300 - 400 mg (3 - 4 x 100 mg) PO 02/07/24 05/14/24 capsule (Dilantin Extended) DAILY #270 caps atorvastatin 80 mg tablet 80 mg PO DAILY #90 tabs 03/20/24 05/14/24 losartan 50 mg tablet 50 mg PO DAILY #30 tabs 03/20/24 05/14/24 metoprolol succinate 25 mg 25 mg PO DAILY #90 tabs 03/20/24 05/14/24 tablet,extended release 24 hr trazodone 50 mg tablet 75 mg (1.5 x 50 mg) PO QHS PRN 03/20/24 05/14/24 insomnia #135 tabs venlafaxine 75 mg capsule,extended 75 mg PO DAILY #30 caps 04/23/24 05/14/24 release 24 hr venlafaxine 37.5 mg 37.5 mg PO DAILY 05/14/24 05/14/24 capsule,extended release 24 hr Previous Rx's ?Medication ?Instructions ?Recorded phenytoin sodium extended 100 mg 300 - 400 mg (3 - 4 x 100 mg) PO 02/07/24 capsule (Dilantin Extended) DAILY #270 caps atorvastatin 80 mg tablet 80 mg PO DAILY #90 tabs 03/20/24 losartan 50 mg tablet 50 mg PO DAILY #30 tabs 03/20/24 metoprolol succinate 25 mg 25 mg PO DAILY #90 tabs 03/20/24 tablet,extended release 24 hr trazodone 50 mg tablet 75 mg (1.5 x 50 mg) PO QHS PRN 03/20/24 insomnia #135 tabs venlafaxine 75 mg capsule,extended 75 mg PO DAILY #30 caps 04/23/24 release 24 hr Allergies Allergy/AdvReac Type Severity Reaction Status Date / Time niacin Allergy Intermediate SKIN RASH Verified 05/14/24 05:40 General Stated Complaint: AMS/LOC ANGUS: 3 Review of Systems All systems reviewed & are unremarkable except as noted in HPI and below Exam Narrative Exam Narrative: 1.Const: Well-nourished, Well-developed, appearing stated age 2.Eyes: PERRL, no conjunctival injection, and symmetrical lids. 3.ENT: Atraumatic external nose and ears. Moist MM. Neck: Symmetric, trachea midline, No thyromegaly. Patient demonstrates good movement of cervical neck. There is no nuchal rigidity, no nuchal tenderness. Patient is able to flex the neck without any difficulty or significant pain. Negative Kernig's and Brudzinski sign. 4.CVS: +S1/S2, Peripheral pulses 2+ and equal in all extremities. Brisk capillary refill in all extremities. 5.RESP: Unlabored respiratory effort. Clear to auscultation bilaterally. No wheezes rales or rhonchi 6.GI: Soft, Nontender/Nondistended, No hepatosplenomegaly. No guarding or rebound. 7.MSK: Normocephalic/Atraumatic, Extremities w/o deformity or ttp No cyanosis or clubbing, Normal movement of all extremities 8.Skin: Warm, Dry. No rashes or lesions. 9.Neuro: medical services manager II-XII grossly intact. Sensation grossly intact, no focal neurologic deficits. All 6 cardinal planes of vision are fully intact. No evidence of rotatory or vertical nystagmus. The patient demonstrated a normal [id number], good dexterity. There was no evidence of dysdiadochokinesia. Patient was able to ambulate without difficulty. There was no wide-based gait. Romberg testing was normal. Agmt-ho-hsob testing was normal. Sensation was intact bilaterally as well as muscle strength bilaterally for all extremities. Patient was able to verbalize butter cup with no slurring, or miss pronunciation. 10.Psych: (AAO) x1. Appropriate mood and affect Course Vital Signs Vital signs: Vital Signs Temperature 37.0 C 05/14/24 05:33 Pulse 83 05/14/24 05:33 Respiratory Rate 16 05/14/24 05:33 Blood Pressure 145/95 H 05/14/24 05:33 Pulse Oximetry 99 05/14/24 05:33 Temperature 37.0 C 05/14/24 05:33 Temperature Source Temporal Artery Scan 05/14/24 05:33 Pulse 83 05/14/24 05:33 Respiratory Rate 16 05/14/24 05:45 Respiratory Effort Normal 05/14/24 05:45 Respiratory Depth Normal 05/14/24 05:45 Respiratory Pattern Normal 05/14/24 05:45 Blood Pressure 145/95 H 05/14/24 05:33 Blood Pressure Position Supine 05/14/24 05:33 Pulse Oximetry 99 05/14/24 05:33 Oxygen Delivery Method Room Air 05/14/24 05:33 Oxygen Flow Rate 0 05/14/24 05:33 Pain Level 0 05/14/24 05:33 Lab/Test Results Lab/Test Results: Laboratory Tests Range/Units 05/14/24 05:46 WBC (4.4-10.8) 10^3/uL 18.11 H RBC (4.36-5.78) 10^6/uL 4.66 Hgb (13.5-17.5) g/dL 15.1 Hct (40.0-50.0) % 43.9 MCV (80-95) fL 94 MCH (27.0-33.0) pg 32.4 MCHC (32.0-36.0) % 34.4 RDW (11.8-14.1) % 12.3 Plt Count (130-400) 10^3/uL 331 MPV (8.0-11.0) fL 10.3 Immature Gran % % 0.6 Neutrophils % % 81.6 Lymphocytes % % 9.8 Monocytes % % 7.7 Eosinophils % % 0.1 Basophils % % 0.2 Nucleated RBC % (0.0-0.3) % 0.0 Absolute Neutrophils (1.2-6.7) 10^3/uL 14.78 H Absolute Lymphocytes (1.2-3.4) 10^3/uL 1.77 Absolute Monocytes (0.1-0.8) 10^3/uL 1.39 H Absolute Eosinophils (0.0-0.7) 10^3/uL 0.02 Absolute Basophils (0.0-0.2) 10^3/uL 0.04 PT (9.1-11.1) sec 10.8 INR (0.9-1.1) 1.1 APTT (23.6-32.8) sec 23.6 VBG pH (7.31-7.41) 7.50 H VBG pCO2 (41-51) mmHg 33 L VBG pO2 mmHg 40 VBG HCO3 (23-28) mmol/L 26 VBG Total CO2 (24-29) mmol/L 22 L VBG O2 Saturation % 82 VBG Base Excess (-2-3) mmol/L 2 Ammonia (11-32) umol/L < 10 L Medical Decision Making This is a 63-year-old male with a past medical history of seizures on Dilantin, high cholesterol, hypertension, very very distant alcohol use no longer currently drinking, who presents today for evaluation of altered mental status. Patient arrives with family members, patient has very little complaints except stating that he feels dizzy, off, and slightly out of sorts. Family including state that since yesterday early afternoon he has been feeling quite off and very confused. No falls or trauma. No fever or chills. No cough. No chest pain, headache or neck pain. Aside for these components of confusion family denies any other abnormalities. Patient has no other complaints. Exam demonstrates an extremely pleasant male, no nuchal rigidity, no meningeal miss. Lungs are clear. No focal neurologic deficits on exam. Patient is only ANO x 1 which is his location. He does not remember his birthdate or the year. This is notably atypical for him. Symptoms do not appear consistent with meningitis with no nuchal rigidity or headache or fever. There could be mild viral encephalitis, stroke, tumor, or electrolyte derangement. This could be a component related to his seizures however being over 12 hours after initial confusion was noted, I would seem to doubt that. We will evaluate for these concerning etiologies, get a CT/CTA of the head, check a Dilantin level, evaluate for infectious etiologies, monitor closely and reassess. 7:38 AM Laboratory workup has returned, patient's white count is elevated at 18. VBG shows pH of 7.5 with mild alkalosis, secondary to low pCO2 at 33. Electrolytes are stable. Renal function stable. Ammonia normal, troponin normal, thyroid function normal. Pending urinalysis and UDS. COVID flu and RSV are negative. Alcohol level negative. With the patient's elevated white count this does increase concern for potential UTI. We will get a chest x-ray to evaluate for pneumonia as a screening component although he does not otherwise have symptoms. We are pending CT/CTA of the brain at this point. Case will be signed out to m cameron colleague Dr. Segura for follow-up on labs and imaging. Patient remains hemodynamically stable. Differential continues to include stroke versus transient global amnesia. Patient's Dilantin level was slightly low at 5.6, we will give him 400 mg orally here. Quality:SDOH Health Related Social Needs: No Data to Display PFSH All Active Problems (Updated 05/14/24 @ 07:40 by Sabas Herrera DO) Acute confusion (Acute) Neck pain (Acute) Seizure (Acute) Subtherapeutic serum dilantin level (Acute) Well adult (Acute) Alcohol abuse (Acute) Depressive disorder (Acute) Unspecified part of closed fracture of clavicle (Acute) Hyperlipidemia (Acute 10/31/12) Hypertension (Acute) Idiopathic scoliosis (Acute) Pityriasis versicolor (Acute) Polyp of colon (Acute 01/01/12) tubular adenoma Seizure disorder (Acute 12/16/14) Unspecified part of closed fracture of clavicle (Acute) Hernia (Acute) Surgical History Colonoscopy - MAC Family History Mother , 84 Essential hypertension Hyperlipidemia Diabetes Asthma Father , 69 Essential hypertension Hyperlipidemia Alcohol abuse Depression Sister Essential hypertension Hyperlipidemia FH: ovarian cancer Lung cancer Cancer lung Brother Essential hypertension Hyperlipidemia Maternal Grandfather Heart disease Paternal Grandfather Essential hypertension Heart disease Maternal Grandmother Essential hypertension Heart disease Hyperlipidemia Paternal Grandmother Heart disease Social History Smoking/Tobacco Use Status: Never Second Hand Exposure: Yes Smoking risk assessment performed?: Yes Alcohol Intake: former Drug use: Daily Substance use type: marijuana Counseling given: No Adopted: No Caregiver/Support person: No Foster care: No Household members: spouse Housing: house Number of Children: 0 number of grandchildren: 0 Communication Needs: None Education Level: high school Do you need help understanding health information?: Often 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 Pets and animals: No Sexually active: Yes Do you think of yourself as: straight/heterosexual Current gender identity: male What is your relationship status?: How often do you talk on the phone with friends or family?: three or more times per week How often do you get together with friends or relatives?: once per week Do you belong to any clubs or organized social groups?: yes Panel score (0-1 are the most socially isolated patients): 3 What type of physical activity do you participate in: walking and other Details: home and yard maintenance Duration: 30-45 minutes/day Frequency: daily Swati/Synagogue: Christianity Special swati needs: No Seatbelt use: always Helmet use: Yes Helmet use: always Drive intox or ride w/intox day haul or farm charter bus driver: No Firearms in home: Yes Firearms unloaded and locked: Yes Do you feel safe at home: Yes Do you feel safe in your relationship?: Yes Victim of physical abuse: No Victim of emotional abuse: No Victim of sexual abuse: No Would you like helpful sources: No
[2024-05-14 06:29] LABS: ETHANOL BLOOD < 3.0 mg/dL (<10)
[2024-05-14 06:41] LABS: COVID-19 PCR Negative (Negative); Influenza A PCR Negative (Negative); Influenza B PCR Negative (Negative); RSV PCR Negative (Negative)
[2024-05-14 06:43] LABS: Source Nasopharynx
[2024-05-14 07:05] LABS: ALT 40 U/L (16-63); AST 25 U/L (15-37); Albumin 3.6 g/dL (3.4-5.0); Alkaline Phosphatase 113 U/L (46-116); Anion Gap 13.9 mmol/L (3-11); BUN 19 mg/dL (7-18); CO2 24.1 mmol/L (21.0-32.0); CREATININE 0.8 mg/dL (0.70-1.30); Calcium 9.1 mg/dL (8.5-10.1); Chloride 102 mmol/L (98-107); Estimated GFR 99.44 (mL/min/1.73m2); Glucose 142 mg/dL (74-106); Potassium 3.4 mmol/L (3.5-5.1); Sodium 140 mmol/L (136-145); Total Protein 7.6 g/dL (6.4-8.2)
[2024-05-14] MEDS: Omnipaque 350 MG/ML 100 ML BTL 70 ML IJ (07:17)
[2024-05-14] MEDS: Normal Saline - Diluent 50 ML VIAL IJ (07:21)
--- NOTE | 2024-05-14 07:30 | DI.RAD_ITS ---
Exam(s) XR PORTABLE CHEST AP EXAM: XR PORTABLE CHEST AP CLINICAL HISTORY: elevated WBC count. eval for pneumonia TECHNIQUE: 2D digital imaging was performed of the chest. One image was obtained. An AP view was ob tained. COMPARISON: CR,XR XR PORTABLE CHEST AP from 09/25/2020 FINDINGS: MEDIASTINUM: Normal. HEART: Normal. PULMONARY VASCULATURE: Normal. LUNGS: Clear. PLEURAL SPACE: No pleural effusion or pneumothorax. BONE:Within normal limits for the patient's age. Old fracture deformity of the left clavicle. OTHER FINDINGS:Normal. IMPRESSION: No acute pulmonary findings. DATA REPOSITORY: RADIATION DOSE DELIVERED:
[2024-05-14 07:51] LABS: Bilirubin Small (Negative); Blood Large (Negative); Clarity Clear (Clear); Glucose Negative (Negative); Ketones >=160 mg/dL (Negative); Leukocyte Esterase Negative (Negative); Nitrite Negative (Negative); Specific Gravity 1.015 (1.005-1.025); Urobilinogen 0.2 mg/dL (Up to 0.2); pH 6.5 (5-8)
[2024-05-14 08:01] LABS: *AMPHETAMINES SCREEN URINE Negative (Negative); *BARBITURATES SCREEN URINE Negative (Negative); *BENZODIAZEPINES SCREEN URINE Negative (Negative); Cannabinoids THC Positive (Negative); Cocaine Screen,Urine Negative (Negative); METHADONE URINE SCREEN Negative (Negative); OPIATES URINE SCREEN Negative (Negative)
[2024-05-14 08:09] LABS: Tricyclic Antidepressants Negative (Negative)
--- NOTE | 2024-05-14 08:12 | ED.PROG_ITS ---
Date of service: 05/14/24 Time of Service: 08:14 Medical Decision Making Patient's labs only remarkable for white count of 18, CT on my read shows no acute findings, V rad read pending. Patient is stable and well-appearing. He has no focal neurological deficits and the only point he scores on stroke screening for [facility] is 1 for not knowing the month. He does know he is been under a lot of stress recently with his undergoing cancer treatments and surgeries, suspect this could be a stress response or conversion disorder, will check an MRI to exclude small stroke as a possible etiology for his symptoms. He has no headache or meningismus so doubt ACTUARIAL ASSOCIATE infection. UA pending as is cxr UA suspicious for UTI, will order ceftriaxone. Patient's MRI confirms an acute right sided temporal lobe infarct. Patient's last known normal was before 2 PM yesterday, vessels on the CTA show no large vessel occlusion. Aspirin ordered will have teleneurology consulted also discussed with hospitalist about admission. Quality:[facility] Health Related Social Needs: No Data to Display Sign Out Sign Out Data: Sign Out Comment: Confusion, altered mental status. Pending CT/CTA, follow-up on UA and portable chest x-ray. If these are negative may require MRI for further evaluation versus admission. Last updated by Sabas Herrera DO at 05/14/24 07:41 Discharge Plan Disposition Patient Disposition: Admit to [facility] Condition: Stable Discharge Details Chief Complaint: AMS/LOC Clinical Impression: Acute confusion, Acute CVA (cerebrovascular accident) Primary Care Provider: Jose E Jennings ED Provider: Bal Connolly [place] [facility] and New Rx's Prescriptions: No Action losartan 50 mg tablet 50 mg PO DAILY Qty: 30 3RF atorvastatin 80 mg tablet 80 mg PO DAILY Qty: 90 3RF metoprolol succinate 25 mg tablet extended release 24 hr 25 mg PO DAILY Qty: 90 3RF trazodone 50 mg tablet 75 mg PO QHS PRN (Reason: insomnia) Qty: 135 3RF Rx Instructions: Take 75mg every night. venlafaxine 75 mg capsule,extended release 24hr 75 mg PO DAILY Qty: 30 2RF phenytoin sodium extended [Dilantin Extended] 100 mg capsule 300 - 400 mg PO DAILY Qty: 270 3RF Rx Instructions: dose reduction 03/07/23 dose increase 300/400 mg alternating days 05/02/23 venlafaxine 37.5 mg capsule,extended release 24hr 37.5 mg PO DAILY Patient Comments: TAKE ONE CAPSULE BY MOUTH EVERY DAY
[2024-05-14 08:18] LABS: Bacteria Few HPF (Negative); C & S Indicated? Yes; Casts Negative LPF (Negative); Crystals Negative HPF (Negative); Epithelial Cells Negative HPF (Negative); Mucus Heavy (Negative); Other Cells Negative (Negative); RBC >50 HPF (0-2)
[2024-05-14] MEDS: LORazepam 2 MG/ML VIAL 1 MG IVP (08:39)
--- NOTE | 2024-05-14 08:40 | DI.VRAD_ITS ---
PROCEDURE INFORMATION: Exam: CTA Head Without And With Contrast, Arteriography Exam date and time: 05/14/2024 7:13 AM Age: 63 years old Clinical indication: Other: Confused, AMS TECHNIQUE: Imaging protocol: Computed tomographic angiography of the head without and with contrast. Exam focused on the arteries. 3D rendering (Not supervised by radiologist): MIP and/or 3D reconstructed images were created by the technologist. Contrast material: OMNIPAQUE 350; Contrast volume: 70 ml; Contrast route: INTRAVENOUS (IV); COMPARISON: CT HEAD WO 09/25/2020 10:30 AM FINDINGS: ANTERIOR CIRCULATION: Right internal carotid artery: Intracranial segment is patent with no significant stenosis or occlusion. No aneurysm. Right middle cerebral artery: No occlusion or significant stenosis. No aneurysm. Right anterior cerebral artery: No occlusion or significant stenosis. No aneurysm. Left internal carotid artery: Intracranial segment is patent with no significant stenosis. No aneurysm. Left middle cerebral artery: No occlusion or significant stenosis. No aneurysm. Left anterior cerebral artery: No occlusion or significant stenosis. No aneurysm. POSTERIOR CIRCULATION: Right vertebral artery: No occlusion or significant stenosis. No aneurysm. Left vertebral artery: No occlusion or significant stenosis. No aneurysm. Basilar artery: No occlusion or significant stenosis. No aneurysm. Right posterior cerebral artery: No occlusion or significant stenosis. No aneurysm. Left posterior cerebral artery: No occlusion or significant stenosis. No aneurysm. HEAD: Brain: Normal. No hemorrhage. Unremarkable white matter. No mass effect. Cerebral ventricles: Normal. No ventriculomegaly. Bones: Unremarkable. No acute fracture. Paranasal sinuses: Visualized sinuses are normal. No fluid levels. Mastoid air cells: Visualized mastoids are normal. No mastoid effusion. Soft tissues: Unremarkable. IMPRESSION: 1. No large vessel occlusion. 2. Unremarkable CT head. PROCEDURE INFORMATION: Exam: CTA Neck Without And With Contrast Exam date and time: 05/14/2024 7:13 AM Age: 63 years old Clinical indication: Other: Confused, AMS TECHNIQUE: Imaging protocol: Computed tomographic angiography of the neck without and with contrast. Exam focused on the cervical segments of the vasculature. 3D rendering (Not supervised by radiologist): MIP and/or 3D reconstructed images were created by the technologist. Contrast material: OMNIPAQUE 350; Contrast volume: 70 ml; Contrast route: INTRAVENOUS (IV); COMPARISON: CT HEAD WO 09/25/2020 10:30 AM FINDINGS: Right common carotid artery: No stenosis. No dissection or occlusion. Right internal carotid artery: No stenosis of the extracranial segment. No dissection or occlusion. Right external carotid artery: No occlusion or stenosis of the origin. Left common carotid artery: No stenosis. No dissection or occlusion. Left internal carotid artery: No stenosis of the extracranial segment. No dissection or occlusion. Left external carotid artery: No occlusion or stenosis of the origin. Right vertebral artery: No stenosis. No dissection or occlusion. Left vertebral artery: No stenosis. No dissection or occlusion. Soft tissues: Normal. No significant soft tissue swelling. Bones/joints: No acute fracture. Chronic left clavicular fracture IMPRESSION: No stenosis or occlusion. REFERENCES: NASCET CRITERIA. The degree of stenosis in the cervical segment of the internal carotid artery is based on NASCET criteria. Normal is no stenosis. Mild is less than 50% stenosis. Moderate is 50-69% stenosis. Severe is 70% to 99% stenosis. Total occlusion is no detectable patent lumen. Dictated and Authenticated by: Almas Andino MD. Ordering:BURTON Obregon MD
[2024-05-14 08:47] LABS: Troponin I 6 ng/L (<or=76)
--- NOTE | 2024-05-14 09:15 | DI.MRI_ITS ---
Exam(s) MR BRAIN WO EXAM: MR BRAIN WO CLINICAL HISTORY: ams, slight aphasia, ?cva TECHNIQUE: Multiplanar multisequence MRI of the brain was performed. COMPARISON: CT CT HEAD WO from 09/25/[address] BRAIN NECK CTA from 05/14/2024 FINDINGS: The examination is limited due to patient motion artifact. VENTRICLES AND EXTRA AXIAL SPACES: Normal in size and morphology for the patient's age. MIDLINE SHIFT: None. CEREBRAL PARENCHYMA: There is an area of restricted diffusion in the medial aspect of the right tempo ral lobe. There is mild edema seen in the soft tissues around the infarct. There are scattered area s of hyperintense signal seen in the white matter on the FLAIR and T2 weighted images most consistent with chronic microvascular ischemic disease. HEMORRHAGE: None. BRAINSTEM/CEREBELLUM: Normal. CALVARIUM: Normal. VISUALIZED PARANASAL SINUSES/MASTOIDS:Small mucous retention cyst or polyp is seen in the left maxill paty sinus. There is mild mucosal thickening seen in the right sphenoid sinus. The remaining visuali zed paranasal sinuses and mastoid air cells are clear. [place]: Normal flow void. PITUITARY GLAND: Unremarkable. OTHER FINDINGS: None. IMPRESSION: 1. Findings of an acute infarct within the medial aspect of the right temporal lobe. 2. Findings were discussed with Dr. Connolly at 9:25 a.m. on 05/14/2024. DATA REPOSITORY:
[2024-05-14] MEDS: cefTRIAXone 2 GM/50 ML BAG IVPB (09:19)
[2024-05-14] MEDS: Aspirin 81 MG CHEW 324 MG CH (10:00)
[2024-05-14] MEDS: Clopidogrel 300 MG TAB PO (10:52)
[2024-05-14] MEDS: Potassium Chloride 20 MEQ TABCR 40 MEQ PO (11:00)
[2024-05-14 11:20] LABS: Lab Add On Test DONE
[2024-05-14 11:31] LABS: Magnesium 1.5 mg/dL (1.8-2.4)
--- NOTE | 2024-05-14 13:08 | PHA.REVIEW2 ---
Pharmacy Admission Review Admission Clinical Review Admission Pharmacy Review: niacin Allergy (Intermediate, Verified 05/14/24 05:40) SKIN RASH Resuscitation Status Full Code Height 5 ft 5 in Weight 64 kg Pharmacy Admission Review Renal Dosing Renal Dosing: BUN 19 mg/dL (7-18) H 05/14/24 05:46 Creatinine 0.8 mg/dL (0.70-1.30) 05/14/24 05:46 Medications needing adjustments: Intervened (CrCl 68 mL/min - had to call nursing to have height put in) List of meds needing interventions: Current medications are okay Anticoagulation Anticoagulation: Hgb 15.1 g/dL (13.5-17.5) 05/14/24 05:46 Hct 43.9 % (40.0-50.0) 05/14/24 05:46 Plt Count 331 10^3/uL (130-400) 05/14/24 05:46 INR 1.1 (0.9-1.1) 05/14/24 05:46 Creatinine 0.8 mg/dL (0.70-1.30) 05/14/24 05:46 DVT Prophylaxis: Reviewed Medications: Enoxaparin (40mg daily) Relevant Labs Relevant Labs: Sodium 140 mmol/L (136-145) 05/14/24 05:46 Potassium 3.4 mmol/L (3.5-5.1) L 05/14/24 05:46 Chloride 102 mmol/L (98-107) 05/14/24 05:46 Magnesium 1.5 mg/dL (1.8-2.4) L 05/14/24 05:46 Electrolytes, C-Reactive P, ESR: Reviewed (K 3.4 - was given 40 mEq PO this AM, Mg 1.5, WBC 18.11, urine culture pending) Cardiac Review Cardiac Review: Troponin I 6 ng/L (<or=76) 05/14/24 08:24 Blood Pressure : Heart Rate 168/89 : 99 1205 Blood Pressure : Heart Rate 145/90 : 92 1031 Blood Pressure : Heart Rate 168/89 : 93 1028 Blood Pressure : Heart Rate 168/73 : 99 1016 Blood Pressure : Heart Rate 168/73 : 94 1005 Blood Pressure : Heart Rate 129/69 : 101 1001 Blood Pressure : Heart Rate 135/82 : 90 0946 Blood Pressure : Heart Rate 138/86 : 81 0931 Blood Pressure : Heart Rate 163/111: 79 0928 Blood Pressure : Heart Rate 153/95 : 91 0918 Blood Pressure : Heart Rate 145/95 : 76 0816 BP, HR, EF%: Reviewed (RR 9) List meds needing interventions: Has order for metoprolol XL 25mg daily QTc Review QTc: Reviewed (437 from 05/14/24) IV to PO Switch IV Medications: Reviewed Home Meds Home Med List reviewed: Intervened Relevent Home Meds Not ordered & why?: losartan - asked provider if this is on hold, waiting to hear back Takes 3 caps every other day alternating with 4 caps of phenytoin. Reached out to nursing to see what days patient takes what dose. Waiting to hear back. Current Meds Current Medication Order Review: Intervened Comments: Added 2nd PRN to trazodone order per pharmacy protocol
--- NOTE | 2024-05-14 13:20 | HPE_ITS ---
Date of service: 05/14/24 Time of Service: 13:21 Assessment and Plan Assessment and plan (1) Acute CVA (cerebrovascular accident): Status: Acute Assessment and plan: MRI showing temporal stroke c/w some word finding and processing difficulty seen clinically. Teleneurology consulted and started on ASA/clopidogrel, which we will continue x 21 days before transitioning to ASA. continue high intensity statin. 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 We don't have evidence of seizure, but will increase daily dose form 350mg average dose to 400mg daily. (3) Hypertension: Status: Acute Assessment and plan: Hold losartan for 24-48 hours (we are already 24hrs out from onset) and allow some permissive hypertension. After this, goal BP <130/80 Qualifiers: Hypertension type: primary hypertension Qualified Code(s): I10 - Essential (primary) hypertension (4) Hypokalemia: Status: Acute Assessment and plan: a/w low mag, replace and follow. (5) Anxiety disorder: Status: Acute Assessment and plan: Sounds like GERARDO, being treated by PCP. No recent alcohol. He denies substance use to me but record of cannabis. He recently increased venlafaxine. There is some evidence of increased vascular risk with this medicaiton that is not present with SSRIs. Change to sertraline 50mg and follow. (6) Hematuria: Status: Acute Assessment and plan: Notable hematuria with some pyuria and new urinary symptoms. I agree with treating now until cultures back, continue ceftriaxone. Qualifiers: Hematuria type: other microscopic Qualified Code(s): R31.29 - Other microscopic hematuria (7) Hypomagnesemia: Status: Acute Assessment and plan: replace, follow (8) DVT prophylaxis: Status: Acute Assessment and plan: LMWH History of Present Illness History of Present Illness Chief Complaint: Confusion Narrative: 63 yo M with history of seizure disorder, hypertension, hyperlipidemia, and anxiety who presented with confusion and slowed speech production that started some time in the afternoon of the day prior to admission. He was alone when this happened watching TV. It was an acute change that occurred around 2pm. He describeds having a hard time understanding what was happening on TV. He did not have headache, vision changes, focal numbness or weakness, loss of conciousness, or abnormal movements. He did feel a little tired and lightheaded. He though a seizure might be coming on so he went to bed to rest. His found him confused but he did not want to go to the ED at that point. He continued to feel confused this morning and she convinced him to come into the ED. He is taking all of his medication regularly including dilantin. He did increase his venlafaxine dose on 04/23 for anxiety. Review of Systems All systems reviewed & are unremarkable except as noted in HPI and below Constitutional Constitutional: Denies headache(s), Denies lethargy and Denies weight loss ENT Ears, Nose, Mouth, and Throat: Denies change in voice, Denies dysphagia, Denies headache(s), Denies nasal congestion, Reports nasal discharge (runny nose when out in cold) and Denies sore throat Cardiovascular Cardiovascular: Denies chest pain, Denies palpitations and Denies dyspnea Respiratory Respiratory: Denies dyspnea Gastrointestinal Gastrointestinal: Denies dysphagia, Denies nausea and Denies vomiting Genitourinary Genitourinary: Denies hematuria, Reports urinary frequency (in past few days) and Reports urinary hesitancy Neurologic Neurologic: Denies headache(s) Psychiatric Psychiatric: Reports anxiety, Denies mood swings and Denies hallucinations Endocrine Endocrine: Denies palpitations PFSH All Active Problems (Updated 05/14/24 @ 14:39 by Red Silva) Anxiety disorder (Acute) Hematuria (Acute) DVT prophylaxis (Acute) Hypomagnesemia (Acute) Hypokalemia (Acute) Acute CVA (cerebrovascular accident) (Acute) Acute confusion (Acute) Neck pain (Acute) Subtherapeutic serum dilantin level (Acute) Seizure (Acute) Well adult (Acute) Alcohol abuse (Acute) Depressive disorder (Acute) Unspecified part of closed fracture of clavicle (Acute) Hyperlipidemia (Acute 10/31/12) Hypertension (Acute) Idiopathic scoliosis (Acute) Pityriasis versicolor (Acute) Polyp of colon (Acute 01/01/12) tubular adenoma Seizure disorder (Acute 12/16/14) Unspecified part of closed fracture of clavicle (Acute) Hernia (Acute) Surgical History Colonoscopy - MAC Family History Mother , 84 Essential hypertension Hyperlipidemia Diabetes Asthma Father , 69 Essential hypertension Hyperlipidemia Alcohol abuse Depression Sister Essential hypertension Hyperlipidemia FH: ovarian cancer Lung cancer Cancer lung Brother Essential hypertension Hyperlipidemia Maternal Grandfather Heart disease Paternal Grandfather Essential hypertension Heart disease Maternal Grandmother Essential hypertension Heart disease Hyperlipidemia Paternal Grandmother Heart disease Social History (Updated 05/14/24 @ 14:26 by Red Silva) Smoking/Tobacco Use Status: Never Second Hand Exposure: Yes Smoking risk assessment performed?: Yes Alcohol Intake: former Drug use: Daily Substance use type: marijuana Counseling given: No Adopted: No Caregiver/Support person: No Foster care: No Household members: spouse Housing: house Number of Children: 0 number of grandchildren: 0 Communication Needs: None Education Level: high school Do you need help understanding health information?: Often 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 Pets and animals: No Sexually active: Yes Do you think of yourself as: straight/heterosexual Current gender identity: male What is your relationship status?: How often do you talk on the phone with friends or family?: three or more times per week How often do you get together with friends or relatives?: once per week Do you belong to any clubs or organized social groups?: yes Panel score (0-1 are the most socially isolated patients): 3 What type of physical activity do you participate in: walking and other Details: home and yard maintenance Duration: 30-45 minutes/day Frequency: daily Swati/Anglican: Episcopalian Special swati needs: No Seatbelt use: always Helmet use: Yes Helmet use: always Drive 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 Meds Allergies and Home Medications Allergies Allergy/AdvReac Type Severity Reaction Status Date / Time niacin Allergy Intermediate SKIN RASH Verified 05/14/24 05:40 Home Medications ?Medication ?Instructions ?Recorded ?Confirmed ?Type phenytoin sodium extended 100 mg 300 - 400 mg (3 - 4 x 100 mg) PO 02/07/24 05/14/24 Rx capsule (Dilantin Extended) DAILY #270 caps atorvastatin 80 mg tablet 80 mg PO DAILY #90 tabs 03/20/24 05/14/24 Rx losartan 50 mg tablet 50 mg PO DAILY #30 tabs 03/20/24 05/14/24 Rx metoprolol succinate 25 mg 25 mg PO DAILY #90 tabs 03/20/24 05/14/24 Rx tablet,extended release 24 hr trazodone 50 mg tablet 75 mg (1.5 x 50 mg) PO QHS PRN 03/20/24 05/14/24 Rx insomnia #135 tabs venlafaxine 75 mg capsule,extended 75 mg PO DAILY #30 caps 04/23/24 05/14/24 Rx release 24 hr Exam Narrative Exam Narrative: GEN: Alert and oriented to self, place, month, but gets day of the week and year off (2024), pleasant and cooperative, gives somewhat vague history. Speech is inteligible, but slow in finding words. No acute distress at rest. HEENT: Head atraumatic. Conjunctiva clear, no icterus. PEERL, EOMI. no rhinorrhea. MMM, OP benign. Neck is supple with no masses or lymphadenopathy, trachea midline LUNGS: CTAB with normal effort CV: RRR with no murmurs, gallops, or rubs. ABD: active bowel sounds, soft, nontender and nondistended. No masses. EXT: no cyanosis, clubbing, or edema MSK: No joint redness or swelling NEURO: CN 2-12 intact, including visual valencia to confrontation. Normal FNF, HTS. Negative pronator drift. 5/5 strenth of 4 extremities, nl senstion. He has trouble relaxing his muscles, but is able to do so. DTRs 2+ and symmetric UE/LE. Normal speech other than word finding difficulties (produces one animal starting with B in 30 seconds, baboon. No tremor SKIN: No rashes or open wounds. PSYCH: Anxious mood and affect, normal thought process. Results Imaging Chest x-ray: report reviewed (No acute pulmonary findings. ) and image reviewed EKG: report reviewed and image reviewed (NSR, nl axis to my read (qrs positive in I, II), nl intervals no ischemic ST-T abnormalities) Imaging Studies: MRI brain w/o: 1. Findings of an acute infarct within the medial aspect of the right temporal lobe. 2. Findings were discussed with Dr. Connolly at 9:25 a[address] on 05/14/2024. CT head: 1. No large vessel occlusion. 2. Unremarkable CT head. CTA head/neck: No stenosis or occlusion. Labs 05/14/24 05:46 05/14/24 05:46 Labs: Laboratory Results - last 24 hr 05/14/24 05/14/24 05/14/24 05:46 06:01 07:33 WBC 18.11 H RBC 4.66 Hgb 15.1 Hct 43.9 MCV 94 MCH 32.4 MCHC 34.4 RDW 12.3 Plt Count 331 MPV 10.3 Immature Gran % 0.6 Neutrophils % 81.6 Lymphocytes % 9.8 Monocytes % 7.7 Eosinophils % 0.1 Basophils % 0.2 Nucleated RBC % 0.0 Absolute Neutrophils 14.78 H Absolute Lymphocytes 1.77 Absolute Monocytes 1.39 H Absolute Eosinophils 0.02 Absolute Basophils 0.04 PT 10.8 INR 1.1 APTT 23.6 VBG pH 7.50 H VBG pCO2 33 L VBG pO2 40 VBG HCO3 26 VBG Total CO2 22 L VBG O2 Saturation 82 VBG Base Excess 2 Sodium 140 Potassium 3.4 L Chloride 102 Carbon Dioxide 24.1 Anion Gap 13.9 H BUN 19 H Creatinine 0.8 Est GFR (CKD-EPI 2020) 99.44 Glucose 142 H Calcium 9.1 Magnesium 1.5 L Total Bilirubin 0.40 AST 25 ALT 40 Alkaline Phosphatase 113 Ammonia < 10 L Troponin I 4 Total Protein 7.6 Albumin 3.6 TSH 1.39 Urine Color Yellow Urine Clarity Clear Urine pH 6.5 Ur Specific [place] 1.015 Urine Protein 100 H Urine Ketones >=160 H Urine Blood Large H Urine Nitrite Negative Urine Bilirubin Small H Urine Urobilinogen 0.2 Ur Leukocyte Esterase Negative Urine RBC >50 H Urine WBC 5-10 Ur Epithelial Cells Negative Urine Crystals Negative Urine Bacteria Few Urine Casts Negative Urine Mucus Heavy Urine Other Negative Ur Culture Indicated? Yes Urine Glucose Negative Urine Opiates Screen Negative Urine Methadone Screen Negative Ur Barbiturates Screen Negative Phenytoin 5.6 L Ur Tricyclics Screen Negative Ur Amphetamines Screen Negative U Benzodiazepines Scrn Negative Urine Cocaine Screen Negative Ur THC Screen Positive A Ethyl Alcohol < 3.0 COVID-19 Source Nasopharynx SARS-CoV-2 (PCR) Negative Influenza Type A (PCR) Negative Influenza Type B (PCR) Negative RSV (PCR) Negative Add-On Test Request 05/14/24 05/14/24 08:24 11:18 WBC RBC Hgb Hct MCV MCH MCHC RDW Plt Count MPV Immature Gran % Neutrophils % Lymphocytes % Monocytes % Eosinophils % Basophils % Nucleated RBC % Absolute Neutrophils Absolute Lymphocytes Absolute Monocytes Absolute Eosinophils Absolute Basophils PT INR APTT VBG pH VBG pCO2 VBG pO2 VBG HCO3 VBG Total CO2 VBG O2 Saturation VBG Base Excess Sodium Potassium Chloride Carbon Dioxide Anion Gap BUN Creatinine Est GFR (CKD-EPI 2020) Glucose Calcium Magnesium Total Bilirubin AST ALT Alkaline Phosphatase Ammonia Troponin I 6 Total Protein Albumin TSH Urine Color Urine Clarity Urine pH Ur Specific [place] Urine Protein Urine Ketones Urine Blood Urine Nitrite Urine Bilirubin Urine Urobilinogen Ur Leukocyte Esterase Urine RBC Urine WBC Ur Epithelial Cells Urine Crystals Urine Bacteria Urine Casts Urine Mucus Urine Other Ur Culture Indicated? Urine Glucose Urine Opiates Screen Urine Methadone Screen Ur Barbiturates Screen Phenytoin Ur Tricyclics Screen Ur Amphetamines Screen U Benzodiazepines Scrn Urine Cocaine Screen Ur THC Screen Ethyl Alcohol COVID-19 Source SARS-CoV-2 (PCR) Influenza Type A (PCR) Influenza Type B (PCR) RSV (PCR) Add-On Test Request DONE Last Vital Signs Temp 36.9 C 05/14/24 12:05 Pulse 99 H 05/14/24 12:05 Resp 9 L 05/14/24 12:20 BP 168/89 H 05/14/24 12:05 Pulse Ox 97 05/14/24 12:20 Time Spent Time spent with Patient: 55-74 minutes Time was spent: preparing to see the patient(eg.review tests), obtaining and/or reviewing separately otained hiistory, ordering medications,tests, procedures, referring, communicating with other health care rep, indepentently interpreting results, counseling the patient and care coordination
[2024-05-14] MEDS: Enoxaparin 40 MG/0.4 ML SYR SC (13:54)
[2024-05-14] MEDS: MAGNESIUM SULFATE 4 GM/100 ML BAG IV_INF (13:55)
--- NOTE | 2024-05-14 14:12 | W.PC.ACHO ---
Registration Status: Primary Language: Preferred Language: ED Information & Data Chief Complaint AMS/LOC 05/14/24 06:26 Triage Note Pt arrives w son who states 05/14/24 05:33 he feels dizzy and 'off' since before 1430 yesterday. Per pt , pt reportedly took 4 seizure pills last night before going to bed ( unsure if this is contributing to pt AMS). Son states his called him yesterday afternoon when pt started to moan/groan ( 1430). Last known well = + 12 hrs. Pt A&O to self only . Denies CP/headache/neck pain/fever/vision changes/ falls. Pt states he has been tearing up recently for no reason. Denies drugs/ etoh. (Last Reviewed 05/14/24 @ 06:27 by Sabas Herrera DO) Colonoscopy - MAC Most Recent Vital Signs Temperature 37.1 C 05/14/24 13:14 Temperature Source Oral 05/14/24 10:05 Pulse 96 H 05/14/24 13:14 Pulse 93 H 05/14/24 12:20 Respiratory Rate 16 05/14/24 13:14 Respiratory Effort Normal, Non-Labored 05/14/24 13:14 Respiratory Depth Normal 05/14/24 13:14 Respiratory Pattern Normal 05/14/24 13:14 Blood Pressure 124/94 H 05/14/24 13:14 Blood Pressure Mean 106 05/14/24 10:31 Blood Pressure Position Sitting 05/14/24 07:58 Pulse Oximetry 99 05/14/24 13:14 Oxygen Delivery Method Room Air 05/14/24 13:14 Oxygen Flow Rate 0 05/14/24 13:14 Pain Level 0 05/14/24 13:14 Allergies niacin Allergy (Intermediate, Verified 05/14/24 05:40) SKIN RASH Active Medications Generic Name Dose Route Start Last Admin Trade Name Freq PRN Reason Stop Dose Admin Enoxaparin Sodium 40 mg 05/14/24 14:00 05/14/24 13:54 Enoxaparin 40 Mg/0.4 Ml Syr SC 40 mg Q24H RAPHAEL Administration Magnesium Sulfate 4 gm in 100 mls @ 25 mls/hr 05/14/24 13:22 05/14/24 13:55 IV_INF 05/14/24 17:21 25 mls/hr NOW ONE Administration IV IV Catheter Type [Left Saline Lock Antecubital] IV Catheter Gauge [Left 18 Antecubital] Diet Orders Category Date Time Status Heart Healthy Eating [DIET] Nutrition 05/14/24 Lunch Active Diagnostics 05/14/24 05/14/24 05/14/24 Range/Units 11:18 08:24 07:33 WBC (4.4-10.8) 10^3/uL RBC (4.36-5.78) 10^6/uL Hgb (13.5-17.5) g/dL Hct (40.0-50.0) % MCV (80-95) fL MCH (27.0-33.0) pg MCHC (32.0-36.0) % RDW (11.8-14.1) % Plt Count (130-400) 10^3/uL MPV (8.0-11.0) fL Immature Gran % % Neutrophils % % Lymphocytes % % Monocytes % % Eosinophils % % Basophils % % Nucleated RBC % (0.0-0.3) % Absolute Neutrophils (1.2-6.7) 10^3/uL Absolute Lymphocytes (1.2-3.4) 10^3/uL Absolute Monocytes (0.1-0.8) 10^3/uL Absolute Eosinophils (0.0-0.7) 10^3/uL Absolute Basophils (0.0-0.2) 10^3/uL PT (9.1-11.1) sec INR (0.9-1.1) APTT (23.6-32.8) sec VBG pH (7.31-7.41) VBG pCO2 (41-51) mmHg VBG pO2 mmHg VBG HCO3 (23-28) mmol/L VBG Total CO2 (24-29) mmol/L VBG O2 Saturation % VBG Base Excess (-2-3) mmol/L Sodium (136-145) mmol/L Potassium (3.5-5.1) mmol/L Chloride (98-107) mmol/L Carbon Dioxide (21.0-32.0) mmol/L Anion Gap (3-11) mmol/L BUN (7-18) mg/dL Creatinine (0.70-1.30) mg/dL Est GFR (CKD-EPI 2020) (mL/min/1.73m2) Glucose (74-106) mg/dL Calcium (8.5-10.1) mg/dL Magnesium (1.8-2.4) mg/dL Total Bilirubin (0.2-1.0) mg/dL AST (15-37) U/L ALT (16-63) U/L Alkaline Phosphatase (46-116) U/L Ammonia (11-32) umol/L Troponin I 6 (<or=76) ng/L Total Protein (6.4-8.2) g/dL Albumin (3.4-5.0) g/dL TSH (0.36-3.74) uIU/mL Urine Color Yellow (Yellow) Urine Clarity Clear (Clear) Urine pH 6.5 (5-8) Ur Specific [place] 1.015 (1.005-1.025) Urine Protein 100 H (Neg-Trace) mg/dL Urine Ketones >=160 H (Negative) mg/dL Urine Blood Large H (Negative) Urine Nitrite Negative (Negative) Urine Bilirubin Small H (Negative) Urine Urobilinogen 0.2 (Up to 0.2) mg/dL Ur Leukocyte Esterase Negative (Negative) Urine RBC >50 H (0-2) HPF Urine WBC 5-10 (0-5) HPF Ur Epithelial Cells Negative (Negative) HPF Urine Crystals Negative (Negative) HPF Urine Bacteria Few (Negative) HPF Urine Casts Negative (Negative) LPF Urine Mucus Heavy (Negative) Urine Other Negative (Negative) Ur Culture Indicated? Yes Urine Glucose Negative (Negative) mg/dL Urine Opiates Screen Negative (Negative) Urine Methadone Screen Negative (Negative) Ur Barbiturates Screen Negative (Negative) Phenytoin (10.0-20.0) ug/mL Ur Tricyclics Screen Negative (Negative) Ur Amphetamines Screen Negative (Negative) U Benzodiazepines Scrn Negative (Negative) Urine Cocaine Screen Negative (Negative) Ur THC Screen Positive A (Negative) Ethyl Alcohol (<10) mg/dL COVID-19 Source SARS-CoV-2 (PCR) (Negative) Influenza Type A (PCR) (Negative) Influenza Type B (PCR) (Negative) RSV (PCR) (Negative) Add-On Test Request DONE 05/14/24 05/14/24 Range/Units 06:01 05:46 WBC 18.11 H (4.4-10.8) 10^3/uL RBC 4.66 (4.36-5.78) 10^6/uL Hgb 15.1 (13.5-17.5) g/dL Hct 43.9 (40.0-50.0) % MCV 94 (80-95) fL MCH 32.4 (27.0-33.0) pg MCHC 34.4 (32.0-36.0) % RDW 12.3 (11.8-14.1) % Plt Count 331 (130-400) 10^3/uL MPV 10.3 (8.0-11.0) fL Immature Gran % 0.6 % Neutrophils % 81.6 % Lymphocytes % 9.8 % Monocytes % 7.7 % Eosinophils % 0.1 % Basophils % 0.2 % Nucleated RBC % 0.0 (0.0-0.3) % Absolute Neutrophils 14.78 H (1.2-6.7) 10^3/uL Absolute Lymphocytes 1.77 (1.2-3.4) 10^3/uL Absolute Monocytes 1.39 H (0.1-0.8) 10^3/uL Absolute Eosinophils 0.02 (0.0-0.7) 10^3/uL Absolute Basophils 0.04 (0.0-0.2) 10^3/uL PT 10.8 (9.1-11.1) sec INR 1.1 (0.9-1.1) APTT 23.6 (23.6-32.8) sec VBG pH 7.50 H (7.31-7.41) VBG pCO2 33 L (41-51) mmHg VBG pO2 40 mmHg VBG HCO3 26 (23-28) mmol/L VBG Total CO2 22 L (24-29) mmol/L VBG O2 Saturation 82 % VBG Base Excess 2 (-2-3) mmol/L Sodium 140 (136-145) mmol/L Potassium 3.4 L (3.5-5.1) mmol/L Chloride 102 (98-107) mmol/L Carbon Dioxide 24.1 (21.0-32.0) mmol/L Anion Gap 13.9 H (3-11) mmol/L BUN 19 H (7-18) mg/dL Creatinine 0.8 (0.70-1.30) mg/dL Est GFR (CKD-EPI 2020) 99.44 (mL/min/1.73m2) Glucose 142 H (74-106) mg/dL Calcium 9.1 (8.5-10.1) mg/dL Magnesium 1.5 L (1.8-2.4) mg/dL Total Bilirubin 0.40 (0.2-1.0) mg/dL AST 25 (15-37) U/L ALT 40 (16-63) U/L Alkaline Phosphatase 113 (46-116) U/L Ammonia < 10 L (11-32) umol/L Troponin I 4 (<or=76) ng/L Total Protein 7.6 (6.4-8.2) g/dL Albumin 3.6 (3.4-5.0) g/dL TSH 1.39 (0.36-3.74) uIU/mL Urine Color (Yellow) Urine Clarity (Clear) Urine pH (5-8) Ur Specific [place] (1.005-1.025) Urine Protein (Neg-Trace) mg/dL Urine Ketones (Negative) mg/dL Urine Blood (Negative) Urine Nitrite (Negative) Urine Bilirubin (Negative) Urine Urobilinogen (Up to 0.2) mg/dL Ur Leukocyte Esterase (Negative) Urine RBC (0-2) HPF Urine WBC (0-5) HPF Ur Epithelial Cells (Negative) HPF Urine Crystals (Negative) HPF Urine Bacteria (Negative) HPF Urine Casts (Negative) LPF Urine Mucus (Negative) Urine Other (Negative) Ur Culture Indicated? Urine Glucose (Negative) mg/dL Urine Opiates Screen (Negative) Urine Methadone Screen (Negative) Ur Barbiturates Screen (Negative) Phenytoin 5.6 L (10.0-20.0) ug/mL Ur Tricyclics Screen (Negative) Ur Amphetamines Screen (Negative) U Benzodiazepines Scrn (Negative) Urine Cocaine Screen (Negative) Ur THC Screen (Negative) Ethyl Alcohol < 3.0 (<10) mg/dL COVID-19 Source Nasopharynx SARS-CoV-2 (PCR) Negative (Negative) Influenza Type A (PCR) Negative (Negative) Influenza Type B (PCR) Negative (Negative) RSV (PCR) Negative (Negative) Add-On Test Request 05/14/24 07:33 Urine Culture - Pending Urine - Reflex from Ua Intake and Output - 24 Hour Total 05/14/24 05:30 thru 05/14/24 13:14 Intake Total 320 Balance 320 Weight 64 kg Intake: IV 80 Oral 240 Falls Risk Assessment History of Falls No History 05/14/24 13:14 Contributing Factors Confusion 05/14/24 13:14 Ambulatory Aids Independent 05/14/24 13:14 Tubes/Lines None 05/14/24 13:14 Gait Evaluation No gait disturbance 05/14/24 13:14 Cognition Cognitive impairment 05/14/24 13:14 Fall Total Score 18 05/14/24 13:14 Level of Risk Standard/Low Risk 05/14/24 13:14 Problems (Last Reviewed 05/14/24 @ 06:27 by Sabas Herrera DO) DVT prophylaxis (Acute) Hypomagnesemia (Acute) Hypokalemia (Acute) Acute CVA (cerebrovascular accident) (Acute) Alcohol abuse (Acute) Hypertension (Acute) Seizure disorder (Acute 12/16/14) v v v v v v v v v Sending and/or Receiving Nurses: Please use comment section below to note any information pertinent to the patient hand-off not included above. Information / Comments: Report from Mariah at 1204. Report received from:
[2024-05-14] MEDS: Normal Saline Flush 10 ML SYR IVP (20:06)
[2024-05-14] MEDS: traZODone 50 MG TAB 75 MG PO (20:06)
[2024-05-14] MEDS: LORazepam 1 MG TAB PO (22:25)
[2024-05-15 02:41] VITALS: BP 132/78; PULSE 77; RESP 19; TEMP 37.1; O2SAT 96
[2024-05-15 06:37] LABS: Abs Immature Grans 0.08 10^3/uL (0.0-0.06); Absolute Basophil Count 0.07 10^3/uL (0.0-0.2); Absolute Eosinophil Count 0.03 10^3/uL (0.0-0.7); Absolute Lymphocyte Count 2.14 10^3/uL (1.2-3.4); Absolute Monocyte Count 1.66 10^3/uL (0.1-0.8); Absolute Neutrophil Count 10.98 10^3/uL (1.2-6.7); Basophils % 0.5 %; Eosinophils % 0.2 %; HCT 42.1 % (40.0-50.0); HGB 14.4 g/dL (13.5-17.5); Immature Grans % 0.5 %; Lymphocytes % 14.3 %; MCH 32.4 pg (27.0-33.0); MCHC 34.2 % (32.0-36.0); MCV 95 fL (80-95); MPV 10.6 fL (8.0-11.0); Monocytes % 11.1 %; Neutrophils % 73.4 %; Platelet Count 304 10^3/uL (130-400); RBC 4.44 10^6/uL (4.36-5.78); RDW 12.5 % (11.8-14.1); RDW-SD 43.6 fL; WBC 14.96 10^3/uL (4.4-10.8)
[2024-05-15 06:53] LABS: Magnesium 2.1 mg/dL (1.8-2.4)
[2024-05-15 06:57] LABS: Hemoglobin A1C 5.9 % (<5.7)
[2024-05-15 07:06] LABS: BUN 13 mg/dL (7-18); CREATININE 0.6 mg/dL (0.70-1.30); Calcium 8.6 mg/dL (8.5-10.1); Calculated LDL 123 mg/dL (<100); Chloride 100 mmol/L (98-107); Cholesterol 200 mg/dL (<200); Estimated GFR 108.47 (mL/min/1.73m2); Glucose 111 mg/dL (74-106); HDL Cholesterol 54 mg/dL (40-60); Potassium 3.8 mmol/L (3.5-5.1); Sodium 138 mmol/L (136-145); Triglyceride 115 mg/dL (<150)
[2024-05-15 07:33] LABS: Diff Comment Diff Reviewed; RBC Morphology Normal
[2024-05-15 07:41] VITALS: BP 135/85; PULSE 74; RESP 19; TEMP 36.7; O2SAT 99
[2024-05-15] MEDS: Atorvastatin 40 MG TAB 80 MG PO (08:24)
[2024-05-15] MEDS: Metoprolol CR 25 MG TABCR PO (08:24)
[2024-05-15] MEDS: Sertraline 50 MG TAB PO (08:24)
[2024-05-15] MEDS: Clopidogrel 75 MG TAB PO (08:24)
[2024-05-15] MEDS: cefTRIAXone 1 GM/50 ML BAG IVPB (08:24)
[2024-05-15] MEDS: Normal Saline Flush 10 ML SYR IVP (08:25)
[2024-05-15] MEDS: Aspirin E.C. 81 MG TABEC PO (08:45)
--- NOTE | 2024-05-15 09:10 | W.PM.DS.N ---
Date of service: 05/15/24 Time of Service: 09:10 DS: Diagnosis Discharge Diagnosis (1) Acute CVA (cerebrovascular accident): Status: Acute (2) Seizure disorder: Status: Acute (3) Hypertension: Status: Acute (4) Hypokalemia: Status: Acute (5) Anxiety disorder: Status: Acute (6) Hematuria: Status: Acute (7) Hypomagnesemia: Status: Acute (8) DVT prophylaxis: Status: Acute (9) Patent foramen ovale: Status: Acute (10) Hyperlipidemia: Status: Acute Discharge Plan Disposition Patient Disposition: Home Condition: Good Discharge Details Reason For Visit: CVA Admit Date/Time: 05/14/24 10:45 Admit Provider: Red Silva Attending Provider: Red Silva Primary Care Provider: Jose E Jennings Hospital Course Hospital Course: 63 yo M with history of HTN, HLD, and seizure disorder who presented about 18 hours after the acute onset of confusion and difficulty speaking. He had no abnormal movement to suggest seizure. CT/CTA of the head and neck was negative but MRI showed a small acute infarct in the medial right temporal lobe. Teleneurology was consulted and he was started on aspirin and clopidogrel. His deficits were in verbal fluency and he could not name the year, but otherwise he had a normal neurologic exam. He was observed overnight with no events clinically or on telemetry. Echocardiogram showed normal LVEF and no clots. PFO was identified on saline injection. He had no signs of DVT, and the CVA was more consistent with small vessel intracranial disease. The plan was to discuss this with a neurologist as an outpatient. A 14 day processing associate was prescribed at discharge. He stated he was taking his atorvastatin daily and his LDL was still 123. Ezetimibe was added to 80mg atorvastatin. His phenytoin levels were low. His dose was increased to 400mg/day every day. He had recently started venlafaxine and increased the dose. Because of a possible connection to vascular risk with venlafaxine, this was changed to sertraine 50mg. His A1c was in the prediabetic range at 5.9% His potassium and magnesium were low. He should supplement magnesium daily He had blood and WBC in his urine and some increased frequency. He was given two doses of IV ceftriaxone, which should be sufficient treatment for UTI. Urine culture was still pending at discharge. Urinalysis should be repeated in 2 weeks, and hematuria work up done if the hematuria persists. He should see primary care in about 2 weeks Home Meds and New Rx's Prescriptions: New clopidogrel 75 mg Tablet 75 mg PO DAILY 20 Days Qty: 20 0RF sertraline 50 mg Tablet 50 mg PO DAILY Qty: 30 3RF aspirin 81 mg Tablet,Delayed Release (Dr/Ec) 81 mg PO NOW Qty: 90 3RF ezetimibe 10 mg tablet 10 mg PO DAILY Qty: 30 3RF magnesium oxide 400 mg (241.3 mg magnesium) tablet 400 mg PO DAILY Qty: 90 1RF Continued losartan 50 mg tablet 50 mg PO DAILY Qty: 30 3RF atorvastatin 80 mg tablet 80 mg PO DAILY Qty: 90 3RF metoprolol succinate 25 mg tablet extended release 24 hr 25 mg PO DAILY Qty: 90 3RF trazodone 50 mg tablet 75 mg PO QHS PRN (Reason: insomnia) Qty: 135 3RF Rx Instructions: Take 75mg every night. Changed phenytoin sodium extended [Dilantin Extended] 100 mg capsule 400 mg PO DAILY Qty: 270 3RF Rx Instructions: dose reduction 03/07/23 dose increase 300/400 mg alternating days 05/02/23 Discontinued venlafaxine 75 mg capsule,extended release 24hr 75 mg PO DAILY Qty: 30 2RF Discharge Instructions Instructions: Stroke (DC) Additional Instructions: You had a small stroke. You should take clopidogrel (Plavix) for 20 more days. You should take aspirin from now on to prevent more strokes. You should continue the atorvastatin 80mg. Even with this dose, your cholesterol is high at 123. You should take ezitamibe (Zetia) with the atorvastatin to lower your risk of strokes Your phenytoin levels were low. You should take the 400mg every day now. We changed you venlafaxine to sertraline in the chance that venlafaxine may be contributing to your risk. This is also good medication for anxiety. you were treated for a urinary tract infection, and had blood in your urine. You should recheck for blood in your urine because if this doesn't go away, we will need to check you kidney and bladder. A 14 day processing associate was ordered. You have a patent foramen ovale which is a potential passageway between the left and right side of your heart. You should talk to a neurologist if they think you should consider having this closed to decrease stroke risk. Stand Alone Forms: Nursing Discharge Form Referrals: Jose E Jennings MD [Primary Care Provider] - (Please call the office and set up a hospital follow up with 7-10 days. ) Activity:: Activity as Tolerated Equipment/Supplies:: No Equipment Needed Diet:: As Tolerated Discharge Orders Discharge Orders: Discharge Order (Routine); Ordered 05/15/24 Ordered By: Red Silva Other Ambulatory Orders: 14 Day Casing Blower (Routine) Timeframe: 10 Day Facility: [facility] - Location: Respiratory Therapy Ordered By: Red Silva DS: Summary Time Spent with Patient providing and/or coordinating discharge services: Greater than 30 minutes Status at Discharge Functional status at discharge: independent ambulation Overall status at discharge: patient is back to baseline Mental Status: mental status grossly normal Speech and Movement: speech and movement normal Mood: anxious mood Affect: anxious affect Quality:SDOH Health Related Social Needs: No Data to Display Exam Narrative Exam Narrative: GEN: Alert and oriented to self, place, month, but gets day of the week and year off (2024), pleasant and cooperative, gives somewhat vague history. Speech is inteligible, but slow in finding words. No acute distress at rest. LUNGS: CTAB with normal effort CV: RRR with no murmurs, gallops, or rubs. ABD: active bowel sounds, soft, nontender and nondistended. No masses. EXT: no cyanosis, clubbing, or edema NEURO: CN 2-12 intact 5/5 strenth of 4 extremities, nl senstion. Normal speech, more fluid (this morning he could produce 4 animal starting with C in 30 seconds, up from one yesterday). Normal gait and coordination (FNF), No tremor PSYCH: Anxious mood and affect, normal thought process. Psych Mental Status: mental status grossly normal Speech and Movement: speech and movement normal Mood: anxious mood Affect: anxious affect DS: Data Vitals/I&O Vitals and I&O: Vital Signs Temperature 36.7 C 05/15/24 07:41 Temperature Source Tympanic 05/15/24 07:41 Pulse 74 05/15/24 07:41 Pulse 93 H 05/14/24 12:20 Respiratory Rate 19 05/15/24 07:41 Respiratory Effort Normal, Non-Labored 05/14/24 13:14 Respiratory Depth Normal 05/14/24 13:14 Respiratory Pattern Normal 05/14/24 13:14 Blood Pressure 135/85 05/15/24 07:41 Blood Pressure Mean 106 05/14/24 10:31 Blood Pressure Position Sitting 05/14/24 07:58 Pulse Oximetry 99 05/15/24 07:41 Oxygen Delivery Method Room Air 05/15/24 07:41 Oxygen Flow Rate 0 05/15/24 07:41 Pain Level 0 05/15/24 07:41 Intake & Output 05/14/24 05/14/24 05/15/24 11:59 23:59 11:59 Intake Total 80 / 1820 1740 / 1820 1050 / 1050 Balance 80 / 1820 1740 / 1820 1050 / 1050 Weight 64 kg 64 kg Intake: IV 80 / 180 100 / 180 Oral 1640 / 1640 1050 / 1050 Other: Urine Color Yellow Yellow Urine Appearance Clear Clear Urine Odor None Normal Comment Patient states urine was yellow in color. Data Completed and Pending Labs on day of discharge: Labs from last 24 hours 05/15/24 05/14/24 05/14/24 06:00 11:18 05:46 WBC 14.96 H RBC 4.44 Hgb 14.4 Hct 42.1 MCV 95 MCH 32.4 MCHC 34.2 RDW 12.5 Plt Count 304 MPV 10.6 Immature Gran % 0.5 Neutrophils % 73.4 Lymphocytes % 14.3 Monocytes % 11.1 Eosinophils % 0.2 Basophils % 0.5 Nucleated RBC % 0.0 Absolute Neutrophils 10.98 H Absolute Lymphocytes 2.14 Absolute Monocytes 1.66 H Absolute Eosinophils 0.03 Absolute Basophils 0.07 RBC Morphology Normal Sodium 138 Potassium 3.8 Chloride 100 Carbon Dioxide 28.0 Anion Gap 10.0 BUN 13 Creatinine 0.6 L Est GFR (CKD-EPI 2020) 108.47 Glucose 111 H Hemoglobin A1c 5.9 H Calcium 8.6 Magnesium 2.1 1.5 L Triglycerides 115 Total Cholesterol 200 LDL Cholesterol, Calc 123 H HDL Cholesterol 54 Add-On Test Request DONE 05/14/24 07:33 Urine - Reflex from Urine Culture - Pending Preliminary micro results at discharge 05/14/24 07:33 Urine Culture - Pending Urine - Reflex from [facility] All Active Problems (Updated 05/15/24 @ 09:11 by Red Silva) Patent foramen ovale (Acute) Anxiety disorder (Acute) Hematuria (Acute) DVT prophylaxis (Acute) Hypomagnesemia (Acute) Hypokalemia (Acute) Acute CVA (cerebrovascular accident) (Acute) Acute confusion (Acute) Neck pain (Acute) Subtherapeutic serum dilantin level (Acute) Seizure (Acute) Well adult (Acute) Alcohol abuse (Acute) Depressive disorder (Acute) Unspecified part of closed fracture of clavicle (Acute) Hyperlipidemia (Acute 10/31/12) Hypertension (Acute) Idiopathic scoliosis (Acute) Pityriasis versicolor (Acute) Polyp of colon (Acute 01/01/12) tubular adenoma Seizure disorder (Acute 12/16/14) Unspecified part of closed fracture of clavicle (Acute) Hernia (Acute) Surgical History Colonoscopy - MAC Family History Mother , 84 Essential hypertension Hyperlipidemia Diabetes Asthma Father , 69 Essential hypertension Hyperlipidemia Alcohol abuse Depression Sister Essential hypertension Hyperlipidemia FH: ovarian cancer Lung cancer Cancer lung Brother Essential hypertension Hyperlipidemia Maternal Grandfather Heart disease Paternal Grandfather Essential hypertension Heart disease Maternal Grandmother Essential hypertension Heart disease Hyperlipidemia Paternal Grandmother Heart disease Social History (Updated 05/14/24 @ 14:26 by Red Silva) Smoking/Tobacco Use Status: Never Second Hand Exposure: Yes Smoking risk assessment performed?: Yes Alcohol Intake: former Drug use: Daily Substance use type: marijuana Counseling given: No Adopted: No Caregiver/Support person: No Foster care: No Household members: spouse Housing: house Number of Children: 0 number of grandchildren: 0 Communication Needs: None Education Level: high school Do you need help understanding health information?: Often 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 Pets and animals: No Sexually active: Yes Do you think of yourself as: straight/heterosexual Current gender identity: male What is your relationship status?: How often do you talk on the phone with friends or family?: three or more times per week How often do you get together with friends or relatives?: once per week Do you belong to any clubs or organized social groups?: yes Panel score (0-1 are the most socially isolated patients): 3 What type of physical activity do you participate in: walking and other Details: home and yard maintenance Duration: 30-45 minutes/day Frequency: daily Swati/Mosque: [employer] Special swati needs: No Seatbelt use: always Helmet use: Yes Helmet use: always Drive intox or ride w/intox regional tanker truck driver: No Firearms in home: Yes Firearms unloaded and locked: Yes Do you feel safe at home: Yes Do you feel safe in your relationship?: Yes Victim of physical abuse: No Victim of emotional abuse: No Victim of sexual abuse: No Would you like helpful sources: No Additional 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 Time Spent with Patient Time Spent with Patient: 45-69 minutes Time was spent: preparing to see the patient(eg.review tests), obtaining and/or reviewing separately otained hiistory, ordering medications,tests, procedures, referring, communicating with other health personal care home administrator, indepentently interpreting results, counseling the patient and care coordination
== END 2024-05-15 10:10 | disposition home or self-care (01) | DRG 65 ==
LOC: ER 11:37 → MS 12:35
PROVIDERS: Student in an Organized Health Care Education/Training Program; Admitting Provider Family Medicine; Emergency Provider Emergency Medicine; PCP Family Medicine; Visit Provider Family Medicine
DX: I63.89 Other cerebral infarction (principal); N39.0 Urinary tract infection, site not specified; Q21.12 Patent foramen ovale; G40.909 Epilepsy, unspecified, not intractable, without status epilepticus; I10 Essential (primary) hypertension; E87.6 Hypokalemia; F41.9 Anxiety disorder, unspecified; R31.29 Other microscopic hematuria; E83.42 Hypomagnesemia; E78.5 Hyperlipidemia, unspecified; R47.89 Other speech disturbances; F32.A Depression, unspecified; M54.2 Cervicalgia; F10.10 Alcohol abuse, uncomplicated; B36.0 Pityriasis versicolor; M41.20 Other idiopathic scoliosis, site unspecified
CPT/HCPCS: 00123; 36415; 70496; 70498; 80048; 80053; 80061; 80307; 82805; 87637; 93005; 96365; 96375; 99285; J1650; 70551; 71045; 80185; 80320; 81003; 81015; 82140; 83036; 83735; 84443; 84484; 85025; 85610; 85730; 87086; 93010; 93306; 99222; 99239; J0696; J2060; J3475; J3490

== ENCOUNTER 2024-05-26 18:20 | Outpatient (REF) | payer OTHER, SELFPAY | END 2024-05-26 18:21 | disposition home or self-care (01) | LOC: LBN 18:20 | PROVIDERS: PCP Family Medicine; Visit Provider Emergency Medicine | DX: N39.0 Urinary tract infection, site not specified (principal) | CPT/HCPCS: 87086 ==

== ENCOUNTER 2024-06-12 12:54 | Outpatient (CLI) | payer OTHER, SELFPAY ==
--- NOTE | 2024-06-12 13:48 | W.CARDEVENT ---
Date of service: 06/12/24 Time of Service: 13:48 Cardiac Event Recorder Referring Provider:: Red Silva Indications:: Cerebral infarction Cardiac Event Note: This is a cardiac event monitor. Patient was monitored for 13 days and 19 hours. Rhythm throughout was sinus. Average heart rate was 89. Minimum was 51, maximum 136 There were very very rare isolated atrial and ventricular ectopic beats. There was no atrial fibrillation, no high-grade AV block, no pauses > 3 seconds. There were no patient symptoms
== END 2024-06-12 12:55 | disposition home or self-care (01) ==
LOC: CARDOPNVT 12:54
PROVIDERS: PCP Family Medicine; Referring Provider Family Medicine; Visit Provider Internal Medicine Cardiovascular Disease
DX: I63.9 Cerebral infarction, unspecified (principal)

== ENCOUNTER 2024-07-14 01:50 | Outpatient (CLI) | payer OTHER, SELFPAY ==
--- NOTE | 2024-07-14 07:41 | DI.CT_ITS ---
Exam(s) CT ABDOMEN PELVIS WO/W EXAM: CT ABDOMEN PELVIS WO/W CLINICAL HISTORY: MICROHEMATURIA,R31.29 TECHNIQUE: Imaging Protocol: Axial computed tomography images with coronal and sagittal reformatted images were created and reviewed. CONTRAST MATERIAL: Intravenous: Omnipaque 350 Contrast volume:100 mL Oral: No COMPARISON: CT CT CHEST/ABD/PEL W from 08/06/2020 FINDINGS: ABDOMEN: Lung Bases: No acute abnormality. Liver: Normal density. No measurable mass. Portal, Superior Mesenteric, and Splenic Veins: Unremarkable. Gallbladder and Biliary Tract: No radiodense calculus or dilation. Pancreas: Normal density, no abnormal calcifications or inflammatory process. Spleen: Normal. Adrenals: No masses seen. Kidneys: Normal size, contour and axis. No radiodense stones or obstructive uropathy. There are simpl e cysts seen in the right kidney. No follow-up is recommended. There are tiny hypodensities seen in the left kidney which are too small for further characterization but likely reflect small cysts. No follow-up is recommended. Abdominal Aorta: Abdominal portion non-dilated. Atherosclerotic calcification is present. Bowel: No obstruction or bowel wall thickening. No evidence of appendicitis. Peritoneal Cavity: No ascites, collection or mesenteric inflammatory response. No free air. Lymph Nodes: Within normal limits. Bones: Within normal limits for the patient's age. There is an old healed left rib fracture. There is a nonunited right 11th rib fracture. Soft Tissues: Unremarkable. PELVIS: Bladder: Symmetric distention, no gross wall thickening. Reproductive Organs: Unremarkable as visualized. Lymph Nodes: Within normal limits. Bones: Within normal limits for the patient's age. IMPRESSION: 1. There is no evidence of nephrolithiasis or hydronephrosis. No evidence of a solid renal or bladde r mass. 2. No acute abdominal or pelvic process. RADIATION DOSE DELIVERED: 1,125.32mGy.cm Total DLP 1,125.32mGy.cm Total DLP DATA REPOSITORY: All CT scans at this facility are submitted to the National Radiology Data Registry (NRDR) Dose Index Registry (DIR) with the [employer] (ACR). RADIATION OPTIMIZATION: All CT scans at this facility use at least one of these dose optimization te chniques: automated exposure control; mA and/or kV adjustment per patient size (includes targeted exa ms where dose is matched to clinical indication); or iterative reconstruction.
[2024-07-14 13:33] LABS: CREATININE 0.7 mg/dL (0.70-1.30); Estimated GFR 103.53 (mL/min/1.73m2)
[2024-07-14] MEDS: Normal Saline - Diluent 50 ML VIAL IJ (13:45)
[2024-07-14] MEDS: Omnipaque 350 MG/ML 100 ML BTL IJ (13:46)
[2024-07-14 13:58] LABS: Clarity Clear (Clear)
[2024-07-14 13:59] LABS: Bacteria Negative HPF (Negative); Bilirubin Negative (Negative); Blood Moderate (Negative); C & S Indicated? No; Casts Negative LPF (Negative); Crystals Negative HPF (Negative); Epithelial Cells Rare HPF (Negative); Glucose Negative (Negative); Ketones Negative (Negative); Leukocyte Esterase Negative (Negative); Mucus Negative (Negative); Nitrite Negative (Negative); Urobilinogen 0.2 mg/dL (Up to 0.2); WBC Negative HPF (0-5); pH 5.5 (5-8)
== END 2024-07-14 02:10 ==
LOC: DI 01:50
PROVIDERS: Emergency Medicine; PCP Family Medicine; Visit Provider Urology
DX: R30.0 Dysuria (principal); R31.29 Other microscopic hematuria
CPT/HCPCS: 74178; 81003; 81015; 82565; J3490

== ENCOUNTER 2025-03-31 09:54 | Outpatient (CLI) | payer OTHER, SELFPAY ==
[2025-03-31 12:21] LABS: Abs Immature Grans 0.01 10^3/uL (0.0-0.06); HCT 44.7 % (40.0-50.0); HGB 14.9 g/dL (13.5-17.5); Immature Grans % 0.1 %; MCH 32.0 pg (27.0-33.0); MCHC 33.3 % (32.0-36.0); MCV 96 fL (80-95); MPV 10.9 fL (8.0-11.0); Platelet Count 355 10^3/uL (130-400); RBC 4.66 10^6/uL (4.36-5.78); RDW 12.6 % (11.8-14.1); RDW-SD 44.9 fL; WBC 9.49 10^3/uL (4.4-10.8)
[2025-03-31 12:37] LABS: ALT 26 U/L (16-63); AST 20 U/L (15-37); Albumin 3.8 g/dL (3.4-5.0); Alkaline Phosphatase 73 U/L (46-116); Anion Gap 8.7 mmol/L (3-11); BUN 14 mg/dL (7-18); Bilirubin, Total 0.3 mg/dL (0.2-1.0); CO2 31.3 mmol/L (21.0-32.0); Calcium 9.8 mg/dL (8.5-10.1); Chloride 100 mmol/L (98-107); Estimated GFR 102.89 (mL/min/1.73m2); Glucose 112 mg/dL (74-106); Potassium 3.9 mmol/L (3.5-5.1); Sodium 140 mmol/L (136-145); TSH (W/Ref FT4) 2.08 uIU/mL (0.36-3.74); Total Protein 7.2 g/dL (6.4-8.2)
== END 2025-03-31 09:55 | disposition home or self-care (01) ==
PROVIDERS: PCP Family Medicine; Visit Provider Family Medicine
DX: G40.909 Epilepsy, unspecified, not intractable, without status epilepticus (principal); D64.9 Anemia, unspecified; R10.9 Unspecified abdominal pain; E03.9 Hypothyroidism, unspecified
CPT/HCPCS: 36415; 80053; 80177; 80185; 82043; 82570; 84443; 85025

== ENCOUNTER 2025-03-31 18:09 | Outpatient (REF) | payer OTHER, SELFPAY ==
[2025-03-31 19:12] LABS: COMMENT (LAB VIEW ONLY) 21.05 mg/dL; Microalb ug/mg Crea 40.9 ug/mg Cr
== END 2025-03-31 18:10 | disposition home or self-care (01) ==
LOC: LBN 18:09
PROVIDERS: PCP Family Medicine; Visit Provider Family Medicine
DX: E11.9 Type 2 diabetes mellitus without complications (principal)
CPT/HCPCS: 82043; 82570

== ENCOUNTER 2025-04-14 09:10 | Outpatient (CLI) | payer OTHER, SELFPAY ==
--- NOTE | 2025-04-14 09:00 | DI.MRI_ITS ---
Exam(s) MR BRAIN WO EXAM: MR BRAIN WO CLINICAL HISTORY: cognitive decline; hx of CVA, PERSISTENT VERTIGO OF CENTRAL ORIGIN, H81.4 TECHNIQUE: Multiplanar multisequence MRI of the brain was performed. COMPARISON: MR MR BRAIN WO from 05/14/2024 FINDINGS: CEREBRAL PARENCHYMA: There is no evidence of intracranial hemorrhage, new mass effect, or shift of midline structures. There are no extra-axial fluid collections. Ventricles are not enlarged or shifted. There is no new significant focal signal abnormality in the cerebellar hemispheres nor within the alice, midbrain, and thalami. There are multiple foci of sub cm FLAIR bright white matter signal abnormality in the bilateral periventricular white matter again noted. On the right side these are unchanged. On the left side there are few new 3 mm FLAIR bright signal foci in the anterior left frontal lobe white matter forceps. However, there is no associated restricted diffusion to suggest acute ischemic event this level nor elsewhere in the brain. In addition, the previously present area of signal abnormality in the medial aspect of the right temporal lobe is no longer seen. PITUITARY GLAND: No mass nor parasellar abnormality. No obvious abnormality in the cavernous sinuses. FLOW VOIDS: The expected flow void are noted. No evidence of obvious aneurysm nor obvious vascular malformation. PARANASAL SINUSES: There is a post inflammatory retention cyst or polyp in the anterior wall of the left maxillary sinus, unchanged from 05/14/2024. There are no fluid levels in the paranasal sinuses nor in the mortal air cells nor with in the mastoid air cells. ORBITS: No obvious findings. IMPRESSION: No significant acute intracranial findings on this noninfused MRI scan of the brain. Compared to the prior MRI scan of April 2024 there are few new left-sided small foci of periventricular white matter signal abnormality which are not associated with hemorrhage, surrounding edema, nor restricted diffusion. These nonspecific findings most probably related to chronic ischemic changes. The previously present area of signal abnormality in the medial aspect of the right temporal lobe seen on the April 2024 MRI study is no longer evident. DATA REPOSITORY:
== END 2025-04-14 09:30 ==
PROVIDERS: PCP Family Medicine; Visit Provider Family Medicine
DX: H81.4 Vertigo of central origin (principal)
CPT/HCPCS: 70551

== ENCOUNTER 2025-04-24 07:56 | Emergency (ER) | payer OTHER, SELFPAY ==
--- NOTE | 2025-04-24 07:45 | DI.RAD_ITS ---
Exam(s) XR PORTABLE CHEST AP EXAM: XR PORTABLE CHEST AP CLINICAL HISTORY: Medical clearance TECHNIQUE: 2D digital imaging was performed of the chest. One image was obtained. An AP view was obtained. COMPARISON: CR,XR XR PORTABLE CHEST AP from 09/25/2020 CR XR PORTABLE CHEST AP from 05/14/2024 FINDINGS: MEDIASTINUM: Normal. HEART: Normal. PULMONARY VASCULATURE: Normal. LUNGS: Clear. PLEURAL SPACE: No pleural effusion or pneumothorax. BONE:Within normal limits for the patient's age. There is an old left clavicular fracture. Degenerative changes are seen in the shoulders bilaterally. OTHER FINDINGS:Normal. IMPRESSION: No acute pulmonary findings. DATA REPOSITORY: RADIATION DOSE DELIVERED:
--- NOTE | 2025-04-24 07:45 | RT.EKG_ITS ---
APPROVED REPORT Exam: Resting ECG Reason for Exam: QT monitoring Patient Location: E HR:58 bpm ECG Measurements Heart Rate 58 AXIS GA [id number] P [id number] QRSd 88 QRS 72 QT 439 T 51 QTc 433 Conclusion Atrial fibrillation...V-rate 53- 60, irreg A-activity No STEMI
[2025-04-24 07:59] VITALS: BP 162/87; PULSE 76; RESP 14; TEMP 36.8; O2SAT 99
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
[2025-04-24 08:34] LABS: Abs Immature Grans 0.06 10^3/uL (0.0-0.06); HCT 40.5 % (40.0-50.0); HGB 13.8 g/dL (13.5-17.5); Immature Grans % 0.5 %; MCH 31.9 pg (27.0-33.0); MCHC 34.1 % (32.0-36.0); MCV 94 fL (80-95); MPV 9.8 fL (8.0-11.0); Platelet Count 339 10^3/uL (130-400); RBC 4.32 10^6/uL (4.36-5.78); RDW 12.9 % (11.8-14.1); RDW-SD 44.8 fL; WBC 12.88 10^3/uL (4.4-10.8)
[2025-04-24] MEDS: Ezetimibe 10 MG TAB PO (08:51)
[2025-04-24] MEDS: levETIRAcetam 500 MG TAB 1000 MG PO ×2 (08:51→19:20)
[2025-04-24 08:52] LABS: ALT 28 U/L (16-63); AST 26 U/L (15-37); Albumin 3.8 g/dL (3.4-5.0); Alkaline Phosphatase 83 U/L (46-116); Anion Gap 9.0 mmol/L (3-11); BUN 11 mg/dL (7-18); Bilirubin, Total 0.4 mg/dL (0.2-1.0); CO2 27.0 mmol/L (21.0-32.0); Calcium 9.4 mg/dL (8.5-10.1); Chloride 103 mmol/L (98-107); Glucose 105 mg/dL (74-106); Magnesium 2.0 mg/dL (1.8-2.4); Potassium 3.9 mmol/L (3.5-5.1); Sodium 139 mmol/L (136-145); Total Protein 7.5 g/dL (6.4-8.2)
[2025-04-24] MEDS: Losartan 25 MG TAB 50 MG PO (08:52)
[2025-04-24] MEDS: QUEtiapine 100 MG TAB PO ×2 (08:52→19:20)
[2025-04-24] MEDS: Sertraline 50 MG TAB PO (08:53)
[2025-04-24] MEDS: Metoprolol CR 25 MG TABCR PO (08:53)
[2025-04-24] MEDS: Aspirin 81 MG CHEW PO (08:53)
[2025-04-24] MEDS: amLODIPine 5 MG TAB PO (08:55)
[2025-04-24 09:02] LABS: TSH (W/Ref FT4) 1.72 uIU/mL (0.36-3.74)
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
[2025-04-24 11:42] LABS: Glucose Negative (Negative)
[2025-04-24 11:52] LABS: C & S Indicated? No; WBC Negative HPF (0-5)
[2025-04-24 11:56] LABS: Cannabinoids THC Positive (Negative)
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
--- NOTE | 2025-04-24 17:59 | CMSP_ITS ---
Date of service: 04/24/25 Time of Service: 17:59 Care Management Safety Plan Status Status: Voluntary Reason for Wait Reason for Wait: Inpatient Admission Safety Plan Safety Plan: VOLUNTARY FOR INPATIENT PSYCHIATRIC STABILIZATION. Patient is appropriate in all interactions since arriving at [facility]; Pt has demonstrated appropriate coping and communication skills, has articulated his or her needs and concerns and is fully engaged during staff interactions. Safety plan has been established with patient, and care team, to adhere to patient goals, identify restrictions based on behavioral status, address nutrition, and determine allowed personal belongings, tools for hygiene and personal care. Determine level of activity including ambulation, level of superv ision, visitors, and determine privileges based on behaviors and level of engagement by pt. VOLUNTARY SAFETY PLAN: 1. Will remain on suicide precautions, in paper clothes 2. Will remain in Zone B under direct supervision of one-on-one staff at all times provided by [facility]; LÁZARO, ORACLE MANAGER sports physiotherapist. 3. May have paper cups, plates, finger foods as well as a cardboard spoon with which to eat meals. 4. Follow [facility] Management of the Admitted Behavioral Health Patient policy. 5. Shower available in Zone B without restriction. 6. Personal belongings-soft items permitted at RN discretion. 7. Visitors-none at this time. 8. Activities: soft cart items, hospital tablets (Netflix/Walker+/music) approved per RN discretion. 9. Bathroom available in Zone B without restriction. 10. Phone: limited to [facility] cordless phone at RN discretion. Due to VOLUNTARY status, if patient wishes to leave [facility], staff will contact [facility] Crisis Screener ([phone]) and Marine Technician ([phone]) as soon as possible. In the event of elopement, notify [facility] Police ([phone]). Patient is currently voluntarily at [facility] and seeking inpatient admission when a bed becomes available. [facility] Frontline Brand Manager will continue seeking placement. Please contact the Marine Technician ([phone]) and [facility] Brand Manager ([phone]) for any needed changes in the Safety Plan. Safety plan has been provided to interdepartmental care team.
--- NOTE | 2025-04-24 17:59 | PDOC.CMSAFE ---
Date of service: 04/24/25 Time of Service: 17:59 Care Management Safety Plan Status Status: Voluntary Reason for Wait Reason for Wait: Inpatient Admission Safety Plan Safety Plan: VOLUNTARY FOR INPATIENT PSYCHIATRIC STABILIZATION. Patient is appropriate in all interactions since arriving at [facility]; Pt has demonstrated appropriate coping and communication skills, has articulated his or her needs and concerns and is fully engaged during staff interactions. Safety plan has been established with patient, and care team, to adhere to patient goals, identify restrictions based on behavioral status, address nutrition, and determine allowed personal belongings, tools for hygiene and personal care. Determine level of activity including ambulation, level of supervision, visitors, and determine privileges based on behaviors and level of engagement by pt. VOLUNTARY SAFETY PLAN: 1. Will remain on suicide precautions, in paper clothes 2. Will remain in Zone B under direct supervision of one-on-one staff at all times provided by [employer]; LÁZARO, SECRETARY SPECIALIST summer school coordinator. 3. May have paper cups, plates, finger foods as well as a cardboard spoon with which to eat meals. 4. Follow [facility] Management of the Admitted Behavioral Health Patient policy. 5. Shower available in Zone B without restriction. 6. Personal belongings-soft items permitted at RN discretion. 7. Visitors-none at this time. 8. Activities: soft cart items, hospital tablets (Netflix/Alberto+/music) approved per RN discretion. 9. Bathroom available in Zone B without restriction. 10. Phone: limited to [facility] cordless phone at RN discretion. Due to VOLUNTARY status, if patient wishes to leave [facility], staff will contact [facility] Crisis Screener ([phone]) and Supervisor Assembly Stock ([phone]) as soon as possible. In the event of elopement, notify [facility] Police ([phone]). Patient is currently voluntarily at [facility] and seeking inpatient admission when a bed becomes available. [facility] Frontline Scheduling Coordinator will continue seeking placement. Please contact the Supervisor Assembly Stock ([phone]) and [facility] Scheduling Coordinator ([phone]) for any needed changes in the Safety Plan. Safety plan has been provided to interdepartmental care team.
--- NOTE | 2025-04-24 18:21 | PDOC.MHCN ---
Date of service: 04/25/25 Time of Service: 11:30
[2025-04-24] MEDS: Atorvastatin 40 MG TAB 80 MG PO (19:20)
[2025-04-24] MEDS: traZODone 50 MG TAB 75 MG PO (19:24)
[2025-04-24 19:34] VITALS: BP 136/87; PULSE 63; RESP 16; TEMP 36.4; O2SAT 97
--- NOTE | 2025-04-25 07:05 | CMPROGNOTE_ITS ---
Date of service: 04/25/25 Time of Service: 07:06 Care Management Progress Note Progress Note Text Progress Note Text: CM huddled with [facility] and [facility] staff regarding Sudhir plan of care. Per report, he has been accepted to [facility] and will transfer there today. Transportation has been coordinated via housekeeper. Safety plan in place. CM will follow. Status Status: Voluntary Social Determinants of Health Screening Will the Patient Participate in the Screening?: Unable to obtain
--- NOTE | 2025-04-25 07:05 | PDOC.CMPRO ---
Date of service: 04/25/25 Time of Service: 07:06 Care Management Progress Note Progress Note Text Progress Note Text: CM huddled with [facility] and [facility] staff regarding Sudhir plan of care. Per report, he has been accepted to [facility] and will transfer there today. Transportation has been coordinated via warehouse assembly worker. Safety plan in place. CM will follow. Status Status: Voluntary Social Determinants of Health Screening Will the Patient Participate in the Screening?: Unable to obtain
--- NOTE | 2025-04-25 07:09 | PDOC.CMSAFE ---
Date of service: 04/25/25 Time of Service: 07:09 Care Management Safety Plan Status Status: Voluntary Reason for Wait Reason for Wait: Inpatient Admission Safety Plan Safety Plan: VOLUNTARY FOR INPATIENT PSYCHIATRIC STABILIZATION. Patient is appropriate in all interactions since arriving at [facility]; Pt has demonstrated appropriate coping and communication skills, has articulated his or her needs and concerns and is fully engaged during staff interactions. Safety plan has been established with patient, and care team, to adhere to patient goals, identify restrictions based on behavioral status, address nutrition, and determine allowed personal belongings, tools for hygiene and personal care. Determine level of activity including ambulation, level of supervision, visitors, and determine privileges based on behaviors and level of engagement by pt. VOLUNTARY SAFETY PLAN: 1. Will remain on suicide precautions, in paper clothes 2. Will remain in Zone B under direct supervision of one-on-one staff at all times provided by [employer]; LÁZARO, VICE PRESIDENT SALES critical care educator. 3. May have paper cups, plates, finger foods as well as a cardboard spoon with which to eat meals. 4. Follow [facility] Management of the Admitted Behavioral Health Patient policy. 5. Shower available in Zone B without restriction. 6. Personal belongings-soft items permitted at RN discretion. 7. Visitors- Supportive visitors at RN discretion. 8. Activities: soft cart items, hospital tablets (Netflix/Romney+/music) approved per RN discretion. 9. Bathroom available in Zone B without restriction. 10. Phone: limited to [facility] cordless phone at RN discretion. Due to VOLUNTARY status, if patient wishes to leave [facility], staff will contact [facility] Crisis Screener ([phone]) and Armhole Sewer ([phone]) as soon as possible. In the event of elopement, notify [facility] Police ([phone]). Patient is currently voluntarily at [facility] and seeking inpatient admission when a bed becomes available. [facility] Frontline Director Of Research will continue seeking placement. Please contact the Armhole Sewer ([phone]) and [facility] Director Of Research ([phone]) for any needed changes in the Safety Plan. Safety plan has been provided to interdepartmental care team.
[2025-04-25 07:16] VITALS: BP 126/94; PULSE 98; RESP 17; O2SAT 97
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
[2025-04-25] MEDS: Metoprolol CR 25 MG TABCR PO (08:55)
[2025-04-25] MEDS: amLODIPine 5 MG TAB PO (08:55)
[2025-04-25] MEDS: Sertraline 50 MG TAB PO (08:55)
[2025-04-25] MEDS: QUEtiapine 100 MG TAB PO (08:55)
[2025-04-25] MEDS: Ezetimibe 10 MG TAB PO (08:55)
[2025-04-25] MEDS: Losartan 25 MG TAB 50 MG PO (08:55)
[2025-04-25] MEDS: levETIRAcetam 500 MG TAB 1000 MG PO (08:59)
[2025-04-25] MEDS: Aspirin 81 MG CHEW PO (08:59)
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
== END 2025-04-25 15:09 ==
PROVIDERS: Emergency Provider General Practice; PCP Family Medicine
DX: R31.29 Other microscopic hematuria (principal); R45.851 Suicidal ideations
CPT/HCPCS: 99285 ×2; 36415; 00123; 80053; 80307; 93005; 96127; G0378; 71045; 80320; 81003; 81015; 83605; 83735; 84443; 85025; 93010